=== PATIENT | male | born 1940 | race Caucasian/White ===

== ENCOUNTER 2023-07-20 15:19 | Inpatient (IN) | payer OTHER, SELFPAY ==
[2023-07-20] VITALS (20 sets, daily range): BP systolic 143–200; BP diastolic 69–96; PULSE 60–76; RESP 20–28; TEMP 36.8–37; O2SAT 87–93; BMI 39.2; BMI 38.1
--- NOTE | 2023-07-20 15:22 | ED_ITS ---
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 Was referred to the ER from the urgent care today. He does note that he has had a chronic cough with phlegm ongoing for the past several years and does not have a clearly satisfactory explanation for the chronic cough. His daughter says it is probably related to COPD, which he was recently diagnosed. In that setting he has developed a new illness this been going on for about a week now with an increased production of sputum. He has had a low-grade fever. Some myalgias and fatigue. No sore throat. No definite known exposures. Today his breathing was definitely worse than normal so he called his daughter, who insisted that he come to the doctor. He presented to the Urgent Care with a cough productive of clear sputum ongoing for about a week. He has been short of breath since this morning. O2 saturations were 86-89% with ambulation at the urgent care, up to 91% while resting in bed. Temp was 98.2?. COVID, influenza, RSV PCR was obtained in Urgent Care and results are pending. He is not having any chest pain. No nausea or vomiting. No fever today. No leg pain. No peripheral edema. Related Data Home Medications Medication Instructions Recorded Confirmed amlodipine 10 mg tablet 10 mg PO DAILY 07/20/23 07/20/23 atorvastatin 20 mg tablet 20 mg PO DAILY 07/20/23 07/20/23 azathioprine 50 mg tablet mg PO BID 07/20/23 07/20/23 azelastine 137 mcg-fluticasone 50 intranasal 07/20/23 07/20/23 mcg/spray nasal spray carboxymethylcellulose sodium 0.5 drp ophthalmic (eye) 07/20/23 07/20/23 % eye drops in a dropperette (Lubricating Plus) escitalopram oxalate 20 mg tablet 20 mg PO DAILY 07/20/23 07/20/23 esomeprazole magnesium 40 mg 40 mg PO QDAY 07/20/23 07/20/23 capsule,delayed release (Nexium) fluticasone fur. 100 mcg-umeclid 1 ea inhalation DAILY 07/20/23 07/20/23 62.5 mcg-vilant 25 mcg inhalat.powder (Trelegy Ellipta) losartan 100 mg tablet 100 mg PO DAILY 07/20/23 07/20/23 Allergies Allergy/AdvReac Type Severity Reaction Status Date / Time No Known Drug Allergies Allergy Verified 07/20/23 14:45 [facility] Social History Smoking Status: Former smoker Do you use any of these nicotine containing products: None Second hand tobacco smoke exposure: Yes How often do you have a drink containing alcohol: never How often do you have six or more drinks on one occasion: Never AUDIT-C Alcohol total score: 0 Non-prescribed substance use: denies use service: Yes Exam Narrative: Exam Narrative: Constitutional: Appears well-developed and well-nourished. Alert. Wearing hearing aids and is very polite and as long as he can here, he is very Conversant. Non toxic. HENT: Head: Atraumatic. Nose: Nose normal. Mouth/Throat: Oral mucosa is clear and moist. no trismus. Pharynx normal. Tonsils symmetric. No tonsillar enlargement, erythema, or exudate. Eyes: Conjunctivae normal. EOM normal. Pupils equal, round, and reactive to light. No scleral icterus. Neck: Normal range of motion. Neck supple. No tracheal deviation present. No JVD Cardiovascular: Normal rate, regular rhythm. No gallop. No friction rub. No murmur heard. Symmetric radial and DP artery pulses Pulmonary/Chest: Effort normal. O2 92% RA resting in bed. No stridor. No respiratory distress. Expiratory rales and rhonchi. Scares wheezes most notable in the bases. No tenderness. Abdominal: Soft. Bowel sounds normal. No distension. No mass. No tenderness. No rebound. No guarding. Musculoskeletal: RUE: Normal range of motion. No tenderness. No deformity LUE: Normal range of motion. No tenderness. No deformity RLE: Normal range of motion. No edema. No tenderness. No deformity LLE: Normal range of motion. No edema. No tenderness. No deformity Neurological: Alert and oriented to person, place, and time. Normal strength. CN II-VII intact. No sensory deficit. GCS eye subscore is 4. GCS verbal subscore is 5. GCS motor subscore is 6. Normal coordination Skin: Skin is warm and dry. No rash noted. No pallor. Normal capillary refill. Psychiatric: Normal mood. Normal affect. Const: Vital Signs, click to edit/add: Vital Signs - 24 hr 07/20/23 15:31 07/20/23 16:31 07/20/23 16:32 Temperature 98.3 F Pulse Rate 67 68 Pulse Rate [Pulse Oximeter] 64 Respiratory Rate 28 H Blood Pressure 143/69 H Blood Pressure [Ri ght Upper Arm] 200/96 H Pulse Oximetry 93 90 91 Oxygen Delivery Me thod Room Air 07/20/23 16:45 07/20/23 17:00 07/20/23 17:02 Temperature Pulse Rate 68 67 64 Pulse Rate [Pulse Oximeter] Respiratory Rate Blood Pressure 154/76 H Blood Pressure [Ri ght Upper Arm] Pulse Oximetry 89 88 89 Oxygen Delivery Me thod 07/20/23 17:15 07/20/23 17:30 07/20/23 17:32 Temperature Pulse Rate 62 76 65 Pulse Rate [Pulse Oximeter] Respiratory Rate Blood Pressure 172/84 H Blood Pressure [Ri ght Upper Arm] Pulse Oximetry 89 89 91 Oxygen Delivery Me thod 07/20/23 17:45 07/20/23 18:00 07/20/23 18:02 Temperature Pulse Rate 69 64 64 Pulse Rate [Pulse Oximeter] Respiratory Rate Blood Pressure 183/87 H Blood Pressure [Ri ght Upper Arm] Pulse Oximetry 90 88 89 Oxygen Delivery Me thod 07/20/23 18:15 Temperature Pulse Rate 70 Pulse Rate [Pulse Oximeter] Respiratory Rate Blood Pressure Blood Pressure [Ri ght Upper Arm] Pulse Oximetry 87 L Oxygen Delivery Me thod Course Vital Signs Vital signs: Initial Vital Signs Temperature 98.3 F 07/20/23 15:31 Temperature Source Temporal Artery Scan 07/20/23 15:31 Pulse Rate 64 07/20/23 15:31 Pulse Rhythm Regular 07/20/23 15:31 Respiratory Rate 28 H 07/20/23 15:31 Blood Pressure 200/96 H 07/20/23 15:31 Blood Pressure Mean 130 H 07/20/23 15:31 Blood Pressure Position Supine 07/20/23 15:31 Pulse Oximetry 93 07/20/23 15:31 Oxygen Delivery Method Room Air 07/20/23 15:31 Vital Signs Temperature 98.3 F 07/20/23 15:31 Pulse Rate 64 07/20/23 15:31 Respiratory Rate 28 H 07/20/23 15:31 Blood Pressure 200/96 H 07/20/23 15:31 Pulse Oximetry 93 07/20/23 15:31 Oxygen Delivery Method Room Air 07/20/23 15:31 Temperature 98.3 F 07/20/23 15:31 Pulse Rate 70 07/20/23 18:15 Respiratory Rate 28 H 07/20/23 15:31 Blood Pressure 183/87 H 07/20/23 18:02 Pulse Oximetry 87 L 07/20/23 18:15 Oxygen Delivery Method Room Air 07/20/23 15:31 Medications Administered Medications: Generic Name Dose Route Start Last Admin Trade Name Freq PRN Reason Stop Dose Admin Methylprednisolone Sodium Succinate 125 mg 07/20/23 15:45 07/20/23 16:17 Methylprednisolone Sod Succ 62.5 Mg/Ml (125) IVP 125 mg Q6H GORDON Administration Discontinued Medications Generic Name Dose Route Start Last Admin Trade Name Freq PRN Reason Stop Dose Admin Albuterol/Ipratropium 1 neb 07/20/23 15:36 07/20/23 16:17 Iprat-Albut 0.5-2.5 Mg/3 Ml Neb IH 07/20/23 15:37 1 neb ONCE ONE Administration Medical Decision Making MDM Narrative Medical decision making narrative: This patient is referred from Urgent Care to the ER for evaluation of 1 week worth of cough now with worsening shortness of breath and hypoxia with sats into them high to mid 80s with ambulation, maintaining in the low 90s while resting. Differential here includes viral URI, influenza, COVID, with her without superimposed COPD exacerbation. Also consider community-acquired pneumonia, cardiac causes of shortness of breath such as [place] or CHF, less likely would be PE. Workup here shows mild leukopenia with a white count of 3.4. Normal hemoglobin at 16.1. Platelet count normal. Metabolic profile in kidney function normal. Blood sugar normal. Troponin and BNP are both normal. Chest x-ray shows no evidence for pulmonary edema, pleural effusion, pneumonia, pneumothorax. Viral testing is positive for RSV but negative for influenza and COVID. He did have expiratory rales and scant wheezes on initial exam. Suspicion was for possible viral infection leading to COPD exacerbation. However treatment with nebulizers really made no improvement in his lung sounds, subjective shortness of breath, or oxygen sats. He maintains at the bare minimum normal resting in bed still desaturates when walking. He is not impro ving with bronchodilator therapy here in the ER. He will require admission for hospitalization and oxygen support. There is no signs at this point of serious bacterial infection such as OM, RPA, epiglottitis, [employer], strep pharyngitis, pneumonia, sinusitis, meningitis, bacteremia, serious bacterial infection. No leg swelling to suggest CHF. No unilateral swelling s to suggest DVT. No pleuritic chest pain or tachycardia or tachypnea to suggest PE. There are no gastrointestinal symptoms at this point and but he does have an elevated hemoglobin which could suggest some dehydration. otherwise laboratory workup is reassuring. He is accepted for admission by hospitalist, Dr. Blevins Lab Data Labs: Lab Results 07/20/23 Range/Units 15:59 WBC 3.45 L (4.50-11.00) K/uL RBC 4.35 (4.30-5.90) m/uL Hgb 16.1 (13.5-17.5) gm/dL Hct 47.1 (37.0-53.0) % MCV 108 H (80-100) fL MCH 37 H (26-34) pg MCHC 34 (32-36) gm/dL RDW Coeff of Rafael 15.2 (11.5-15.5) % Plt Count 153 (140-440) K/uL Neut % (Auto) 57.7 (42.0-72.0) % Lymph % (Auto) 27.5 (20-44) % [place] % (Auto) 11.0 (0.0-11.0) % Eos % (Auto) 3.5 (0.0-7.0) % Baso % (Auto) 0.3 (0.0-3.0) % Neut # (Auto) 2.00 (1.7-7.0) K/uL Lymph # (Auto) 0.90 (0.90-2.90) K/uL [place] # (Auto) 0.40 (0.00-0.90) K/UL Eos # (Auto) 0.10 (0.00-0.50) K/uL Baso # (Auto) 0.00 (0.00-0.30) K/uL Abs Immat Gran (auto) 0.00 (0.00-0.30) K/uL Imm/Tot Granulo (auto) 0.0 % Diff Slide Review Acceptable Review (Acceptable) Sodium 137 (135-149) mmol/L Potassium 3.8 (3.6-5.1) mmol/L Chloride 105 (96-114) mmol/L Carbon Dioxide 24 (20-32) mmol/L Anion Gap 8 (7-15) mEq/L BUN 14 (7-30) mg/dL Creatinine 0.9 (0.5-1.5) mg/dL Estimated Creat Clear 53.25 Estimated GFR 85 ml/min Glucose 113 (60-115) mg/dL Calcium 9.2 (8.4-10.6) mg/dL Troponin I < 0.01 L (0.01-0.04) ng/mL NT-Pro-B Natriuret Pep 84 pg/mL Imaging Data Chest x-ray: Attestation: I have reviewed the pertinent imaging results. Radiologist's impression: IMPRESSION: Lungs are clear. Normal chest radiographs. ECG Data Attestation: I personally reviewed and interpreted this ECG as follows: Interpretation: Normal sinus rhythm. Rate 60 MT 166 QRS axis right bundle-branch block pattern. No pathologic Q-waves. Normal QRS axis ST segment/T wave: Nonspecific T-wave flattening throughout. No ST segment elevation or depression QTc: 462 Discharge Plan Discharge Clinical Impression: Respiratory syncytial virus (RSV) infection, Hypoxia Prescriptions: No Action escitalopram oxalate 20 mg tablet 20 mg PO DAILY Trelegy Ellipta 100-62.5-25 mcg blister with device 1 ea inhalation DAILY atorvastatin 20 mg tablet 20 mg PO DAILY amlodipine 10 mg tablet 10 mg PO DAILY azathioprine 50 mg tablet PO BID losartan 100 mg tablet 100 mg PO DAILY carboxymethylcellulose sodium [Lubricating Plus] 0.5 % dropperette ophthalmic (eye) azelastine-fluticasone 137-50 mcg/spray spray,non-aerosol intranasal Patient Comments: [NO ORIGINAL SIG] esomeprazole magnesium [Nexium] 40 mg capsule,delayed release(DR/EC) 40 mg PO QDAY Follow Up/Referrals: Provider,Not a Local [Primary Care Provider] -
--- NOTE | 2023-07-20 15:36 | CRLHL7_ITS ---
For Patients: As a result of the Cures Act, medical imaging exams and procedure reports are released immediately into your electronic medical record. You may view this report before your referring provider. If you have questions, please contact your health care provider. INDICATION: Short of breath, cough COMPARISON: None. TECHNIQUE: PA and lateral 2 view chest radiograph. FINDINGS: The lungs are well expanded. No focal consolidations. No pulmonary edema. No pleural effusion. No pneumothorax. No pneumomediastinum. Normal cardiomediastinal silhouette. Bones: Left 4th through 7th rib fracture fixation plate and screw hardware. No acute appearing osseous abnormalities. IMPRESSION: Lungs are clear. Normal chest radiographs. Dictated by Donya Martins MD @ 07/20/2023 4:32:25 PM (Electronically Signed)
[2023-07-20 16:07] LABS: Basophils Percent Auto 0.3 % (0.0-3.0); Eosinophils Percent Auto 3.5 % (0.0-7.0); Hematocrit 47.1 % (37.0-53.0); Hemoglobin* 16.1 gm/dL (13.5-17.5); Lymphocytes Percent Auto 27.5 % (20-44); Mean Corpuscular HGB Conc 34 gm/dL (32-36); Mean Corpuscular Hemoglobin 37 pg (26-34); Mean Corpuscular Volume 108 fL (80-100); Neutrophils Percent Auto 57.7 % (42.0-72.0); Platelet Count* 153 K/uL (140-440); RDW Coefficient of Variation % 15.2 % (11.5-15.5); Red Blood Count 4.35 m/uL (4.30-5.90); White Blood Count* 3.45 K/uL (4.50-11.00)
[2023-07-20] MEDS: METHYLPREDNISOLONE SOD SUCC 62.5 MG/ML (125) 125 MG IVP ×2 (16:17→22:24)
[2023-07-20] MEDS: IPRAT-ALBUT 0.5-2.5 MG/3 ML NEB 1 NEB IH (16:17)
[2023-07-20 16:20] LABS: Chloride* 105 mmol/L (96-114); Potassium* 3.8 mmol/L (3.6-5.1); Sodium* 137 mmol/L (135-149)
[2023-07-20 16:22] LABS: Creatinine* 0.9 mg/dL (0.5-1.5); Est. Creatinine Clearance* 53.25; Estimated Glomerular Filt Rate 85 ml/min
[2023-07-20 16:23] LABS: Anion Gap 8 mEq/L (7-15); Blood Urea Nitrogen* 14 mg/dL (7-30); Calcium* 9.2 mg/dL (8.4-10.6); Carbon Dioxide* 24 mmol/L (20-32); Glucose* 113 mg/dL (60-115)
[2023-07-20 16:42] LABS: Slide Review Reflex Yes
[2023-07-20 16:45] LABS: NT Pro B Type NatriureticPept* 84 pg/mL; Troponin I* < 0.01 ng/mL (0.01-0.04)
[2023-07-20 16:55] LABS: Slide Review Acceptable Review (Acceptable)
--- NOTE | 2023-07-20 20:47 | PM.IMHP1 ---
Hospitalist- H&P: HPI History of Present Illness Date Seen: 07/20/23 Chief complaint: 88-91% O2, HBP, cough-sent by Narrative: Cornelius Telles is a 83 year old male with recently diagnosed COPD (non-oxygen dependent) who presented to the ED after having hypoxia in the UC earlier today. He went to the Urgent Care for one week history of cough (has had chronic cough for years, symptoms worse in the past week), subjective fevers, weakness. No chest pain, no hemoptysis. No LE edema, orthopnea, or PND. No GI symptoms. No known sick contacts. Found to be hypoxic in Urgent care and sent to ED. ER Course and Findings: - no acute findings on CXR, overall reassuring labs - O2 saturations 90-93% on RA while laying in bed, down to 85-86% with activity - given steroids and nebs with persistent hypoxia Given hypoxia, COPD history, and immunosuppression, patient admitted to the hospital. When I see Cornelius, he's feeling better, wearing supplemental oxygen. Review of Systems Status of ROS: Reports: 10 or more systems reviewed and unremarkable except as noted in History and below [facility] Medical History (Updated 07/20/23 @ 22:42 by Amanda Hobson MD) Hyperlipidemia ?E78.5 - Hyperlipidemia, unspecified (ICD-10) GERD (gastroesophageal reflux disease) ?K21.9 - Gastro-esophageal reflux disease without esophagitis (ICD-10) Essential hypertension ?I10 - Essential (primary) hypertension (ICD-10) COPD (chronic obstructive pulmonary disease) ?J44.9 - Chronic obstructive pulmonary disease, unspecified (ICD-10) Ulcerative colitis ?K51.90 - Ulcerative colitis, unspecified, without complications (ICD-10) Multiple rib fractures ?S22.49XA - Multiple fractures of ribs, unspecified side, initial encounter for closed fracture (ICD-10) Surgical History (Updated 07/20/23 @ 20:50 by Amanda Hobson MD) Hx of cholecystectomy ?Z90.49 - Acquired absence of other specified parts of digestive tract (ICD-10) Social History (Updated 07/20/23 @ 20:56 by Amanda Hobson MD) Narrative: 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 Primary home in [place], [place]. Currently staying with daughter Niya near [place] as she is helping care for Shayes Kayla (severe COPD). Quit smoking in the . Quit smoking 1999. Daughter Niya would be MDM if needed. Requests DNR/DNI status. What is your current living situation?: I presently have a place to live Problems where you live: no known problems Problems where you live details: NA In the past 12 months, utilities in danger of being shut off: no In past 12 months, lack of transportation kept you from medical appts, meetings, work, or getting things needed for daily living: no In the past 12 mos, have been you worried that your food would run out before you had money to buy more?: never true In the past 12 mos, the food you bought just didn't last and you didn't have money to buy more?: never true Highest level of school completed/degree received: 11th grade Smoking Status: Former smoker Do you use any of these nicotine containing products: None Nicotine containing products detail: over 40 years ago Second hand tobacco smoke exposure: Yes How often do you have a drink containing alcohol: never How often do you have six or more drinks on one occasion: Never AUDIT-C Alcohol total score: 0 Non-prescribed substance use: denies use Caffeine: Yes (rarely) How often does anyone, including family, friends and others, physically hurt you: never How often does anyone, including family, friends and others, insult or talk down to you: never How often does anyone, including family, friends and others, threaten you with harm: never How often does anyone, including family, friends and others, scream or curse at you: never service: Yes Meds Home Medications and Allergies Home Medications Medication Instructions Recorded Confirmed Type amlodipine 10 mg tablet 10 mg PO DAILY 07/20/23 07/20/23 History atorvastatin 20 mg tablet 20 mg PO DAILY 07/20/23 07/20/23 History azathioprine 50 mg tablet 50 mg PO BID 07/20/23 07/20/23 History azelastine 137 mcg-fluticasone 50 1 spray intranasal Q12H PRN 07/20/23 07/20/23 History mcg/spray nasal spray carboxymethylcellulose sodium 0.5 1 drp ophthalmic (eye) Q8H PRN 07/20/23 07/20/23 History % eye drops in a dropperette (Lubricating Plus) escitalopram oxalate 20 mg tablet 20 mg PO DAILY 07/20/23 07/20/23 History esomeprazole magnesium 40 mg 40 mg PO QDAY 07/20/23 07/20/23 History capsule,delayed release (Nexium) fluticasone fur. 100 mcg-umeclid 1 ea inhalation DAILY 07/20/23 07/20/23 History 62.5 mcg-vilant 25 mcg inhalat.powder (Trelegy Ellipta) losartan 100 mg tablet 100 mg PO DAILY 07/20/23 07/20/23 History Allergies Allergy/AdvReac Type Severity Reaction Status Date / Time No Known Drug Allergies Allergy Verified 07/20/23 14:45 Exam Narrative: Exam Narrative: GEN: Alert and oriented, sitting comfortably in bed and speaking in full sentences HEENT: EOMIs bilaterally, no scleral icterus CV: RRR, No concerning murmurs R: No significant wheezing during my exam, mild bibasilar rhonchi, air movement adequate Ab: protuberant, no ttp, no masses Ext: wwp, no concerning edema Skin: Scattered AKs on hands and head, no acute or concerning skin lesions Psych: Appropriate Const: Vital Signs, click to edit/add: Vital Signs - 24 hr 07/20/23 15:31 07/20/23 16:31 07/20/23 16:32 Temperature 98.3 F Pulse Rate 67 68 Pulse Rate [Pulse Oximeter] 64 Respiratory Rate 28 H Blood Pressure 143/69 H Blood Pressure [Le ft Arm] Blood Pressure [Ri ght Upper Arm] 200/96 H Pulse Oximetry 93 90 91 Oxygen Delivery Me thod Room Air Oxygen Flow Rate 07/20/23 16:45 07/20/23 17:00 07/20/23 17:02 Temperature Pulse Rate 68 67 64 Pulse Rate [Pulse Oximeter] Respiratory Rate Blood Pressure 154/76 H Blood Pressure [Le ft Arm] Blood Pressure [Ri ght Upper Arm] Pulse Oximetry 89 88 89 Oxygen Delivery Me thod Oxygen Flow Rate 07/20/23 17:15 07/20/23 17:30 07/20/23 17:32 Temperature Pulse Rate 62 76 65 Pulse Rate [Pulse Oximeter] Respiratory Rate Blood Pressure 172/84 H Blood Pressure [Le ft Arm] Blood Pressure [Ri ght Upper Arm] Pulse Oximetry 89 89 91 Oxygen Delivery Me thod Oxygen Flow Rate 07/20/23 17:45 07/20/23 18:00 07/20/23 18:02 Temperature Pulse Rate 69 64 64 Pulse Rate [Pulse Oximeter] Respiratory Rate Blood Pressure 183/87 H Blood Pressure [Le ft Arm] Blood Pressure [Ri ght Upper Arm] Pulse Oximetry 90 88 89 Oxygen Delivery Me thod Oxygen Flow Rate 07/20/23 18:15 07/20/23 18:30 07/20/23 18:33 Temperature Pulse Rate 70 71 74 Pulse Rate [Pulse Oximeter] Respiratory Rate Blood Pressure 157/81 H Blood Pressure [Le ft Arm] Blood Pressure [Ri ght Upper Arm] Pulse Oximetry 87 L 88 88 Oxygen Delivery Me thod Oxygen Flow Rate 07/20/23 18:34 07/20/23 18:45 07/20/23 18:50 Temperature 98.2 F Pulse Rate 69 60 Pulse Rate [Pulse Oximeter] 61 Respiratory Rate 26 H Blood Pressure Blood Pressure [Le ft Arm] 187/92 H Blood Pressure [Ri ght Upper Arm] Pulse Oximetry 88 89 91 Oxygen Delivery Me thod Nasal Cannula Oxygen Flow Rate 2 Hospitalist - H&P: Result Labs Labs: Short CBC 07/20/23 Range/Units 15:59 WBC 3.45 L (4.50-11.00) K/uL Hgb 16.1 (13.5-17.5) gm/dL Hct 47.1 (37.0-53.0) % Plt Count 153 (140-440) K/uL BMP 07/20/23 15:59 Sodium 137 Potassium 3.8 Chloride 105 Carbon Dioxide 24 BUN 14 Creatinine 0.9 Glucose 113 Calcium 9.2 Cardiac Enzymes 07/20/23 Range/Units 15:59 Troponin I < 0.01 L (0.01-0.04) ng/mL Assessment and Plan Assessment and plan (1) Hypoxia: Problem comment: - supplemental oxygen as needed, RT referral - 2/2 RSV, higher risk given underlying COPD Status: Acute (2) Respiratory syncytial virus (RSV) infection: Problem comment: - supportive cares: steroids given COPD history, nebs prn Status: Acute (3) Ulcerative colitis: Problem comment: - on Azathioprine Status: Acute (4) COPD (chronic obstructive pulmonary disease): Problem comment: - recently diagnosed at [place], on Trelegy Ellipta - does not wear supplemental oxygen as an outpatient Status: Acute (5) Essential hypertension: Problem comment: - continue home medications (Amlodipine, Losartan) Status: Acute Plan - per above - patient requests DNR/DNI status
[2023-07-20] MEDS: SODIUM CHLORIDE 0.9 % (FLUSH) 10 ML SYRINGE 5 ML IVF (22:24)
[2023-07-21] VITALS (7 sets, daily range): BP systolic 105–190; BP diastolic 58–89; PULSE 52–92; RESP 18–20; TEMP 36.3–36.9; O2SAT 90–93
[2023-07-21] MEDS: METHYLPREDNISOLONE SOD SUCC 62.5 MG/ML (125) 125 MG IVP (04:39)
--- NOTE | 2023-07-21 06:41 | PC.NURSE ---
Patient pleasant, alert and oriented. Ambulated with stand by assist. Reported feeling a little dizzy when ambulating to bathroom. Denied pain this shift. ?
[2023-07-21 06:42] LABS: Basophils Percent Auto 0.3 % (0.0-3.0); Hematocrit 45.8 % (37.0-53.0); Hemoglobin* 15.9 gm/dL (13.5-17.5); Immature Granulocytes Pct Auto 0.3 %; Lymphocytes Percent Auto 15.9 % (20-44); Mean Corpuscular HGB Conc 35 gm/dL (32-36); Mean Corpuscular Hemoglobin 37 pg (26-34); Mean Corpuscular Volume 108 fL (80-100); Monocytes Percent Auto 1.5 % (0.0-11.0); Platelet Count* 160 K/uL (140-440); RDW Coefficient of Variation % 15.2 % (11.5-15.5); Red Blood Count 4.26 m/uL (4.30-5.90); White Blood Count* 3.39 K/uL (4.50-11.00)
[2023-07-21 07:12] LABS: Slide Review Reflex No
[2023-07-21 07:23] LABS: Chloride* 107 mmol/L (96-114)
[2023-07-21 07:24] LABS: Sodium* 137 mmol/L (135-149)
[2023-07-21 07:26] LABS: Anion Gap 10 mEq/L (7-15); Carbon Dioxide* 20 mmol/L (20-32); Creatinine* 0.6 mg/dL (0.5-1.5); Est. Creatinine Clearance* 53.25; Estimated Glomerular Filt Rate 96 ml/min
[2023-07-21 07:27] LABS: Blood Urea Nitrogen* 14 mg/dL (7-30); Calcium* 9.2 mg/dL (8.4-10.6); Glucose* 176 mg/dL (60-115)
[2023-07-21] MEDS: OMEPRAZOLE 20 MG CAPSULE DR 40 MG PO (09:12)
[2023-07-21] MEDS: predniSONE 20 MG TABLET 40 MG PO (09:13)
[2023-07-21] MEDS: AMLODIPINE 10 MG TABLET PO (09:14)
[2023-07-21] MEDS: ATORVASTATIN 10 MG TABLET 20 MG PO (09:14)
[2023-07-21] MEDS: ESCITALOPRAM 10 MG TABLET 20 MG PO (09:15)
[2023-07-21] MEDS: LOSARTAN POTASSIUM 50 MG TABLET 100 MG PO (09:16)
[2023-07-21] MEDS: azaTHIOprine 50 MG TABLET PO ×2 (10:19→21:28)
[2023-07-21] MEDS: SODIUM CHLORIDE 0.9 % (FLUSH) 10 ML SYRINGE 5 ML IVF (10:20)
[2023-07-21] MEDS: Fluticasone-Umeclidin-Vilanter [Trelegy Ellipta] 100-62.5-25 mcg IH (13:11)
--- NOTE | 2023-07-21 14:11 | PM.IMPN1 ---
Progress Note: A&P Assessment and plan (1) Hypoxia: Problem details: - supplemental oxygen as needed, continue to wean as able, maintaining saturations >88% - RT referral - 2/2 RSV, higher risk given underlying COPD Status: Acute (2) Respiratory syncytial virus (RSV) infection: Problem details: - supportive cares: Oral steroids given COPD history, nebs prn Status: Acute (3) Ulcerative colitis: Problem details: - on Azathioprine Status: Acute (4) COPD (chronic obstructive pulmonary disease): Problem details: - recently diagnosed at [place], on Trerosemarygy Ellipta (brought in by ) - no chronic home oxygen use Status: Acute (5) Essential hypertension: Problem details: - continue home medications (Amlodipine, Losartan) Status: Acute Plan Continue to monitor, possible discharge tomorrow Time Spent With Patient Total time spent: Total time spent caring for the patient today was 45 minutes. This includes time spent for the visit reviewing the chart, time spent during the visit, time spent after the visit and documentation and planning in coordination of care. Subjective Date Seen: 07/21/23 Interval history: Patient reports feeling better this morning. Denies feeling short of breath. Denies chest pain or pressure. Denies headache or dizziness. Tolerating orals without nausea vomiting. Exam Narrative: Exam Narrative: PHYSICAL EXAM General: Pleasant, conversant, NAD HEENT: Normocephalic, atraumatic, sclera white, EOMI, oral mucosa moist Cardiovascular: RRR Pulmonary: Mildly diminished without rhonchi or wheezes. No dyspnea on N/C Abdominal: Soft, nondistended, NTTP Neurological: Alert, answering questions appropriately, cranial nerves intact, no focal findings Extremities: No gross joint deformity or swelling. AROMI. Neurovascularly intact Skin: Warm, dry. Const: Vital Signs, click to edit/add: Vital Signs - 24 hr 07/20/23 15:31 07/20/23 16:31 07/20/23 16:32 Temperature 98.3 F Pulse Rate 67 68 Pulse Rate [Bilate ral Dorsalis Pedis ] Pulse Rate [Pulse Oximeter] 64 Respiratory Rate 28 H Blood Pressure 143/69 H Blood Pressure [Le ft Arm] Blood Pressure [Ri ght Upper Arm] 200/96 H Pulse Oximetry 93 90 91 Oxygen Delivery Me thod Room Air Oxygen Flow Rate 07/20/23 16:45 07/20/23 17:00 07/20/23 17:02 Temperature Pulse Rate 68 67 64 Pulse Rate [Bilate ral Dorsalis Pedis ] Pulse Rate [Pulse Oximeter] Respiratory Rate Blood Pressure 154/76 H Blood Pressure [Le ft Arm] Blood Pressure [Ri ght Upper Arm] Pulse Oximetry 89 88 89 Oxygen Delivery Me thod Oxygen Flow Rate 07/20/23 17:15 07/20/23 17:30 07/20/23 17:32 Temperature Pulse Rate 62 76 65 Pulse Rate [Bilate ral Dorsalis Pedis ] Pulse Rate [Pulse Oximeter] Respiratory Rate Blood Pressure 172/84 H Blood Pressure [Le ft Arm] Blood Pressure [Ri ght Upper Arm] Pulse Oximetry 89 89 91 Oxygen Delivery Me thod Oxygen Flow Rate 07/20/23 17:45 07/20/23 18:00 07/20/23 18:02 Temperature Pulse Rate 69 64 64 Pulse Rate [Bilate ral Dorsalis Pedis ] Pulse Rate [Pulse Oximeter] Respiratory Rate Blood Pressure 183/87 H Blood Pressure [Le ft Arm] Blood Pressure [Ri ght Upper Arm] Pulse Oximetry 90 88 89 Oxygen Delivery Me thod Oxygen Flow Rate 07/20/23 18:15 07/20/23 18:30 07/20/23 18:33 Temperature Pulse Rate 70 71 74 Pulse Rate [Bilate ral Dorsalis Pedis ] Pulse Rate [Pulse Oximeter] Respiratory Rate Blood Pressure 157/81 H Blood Pressure [Le ft Arm] Blood Pressure [Ri ght Upper Arm] Pulse Oximetry 87 L 88 88 Oxygen Delivery Me thod Oxygen Flow Rate 07/20/23 18:34 07/20/23 18:45 07/20/23 18:50 Temperature 98.2 F Pulse Rate 69 60 Pulse Rate [Bilate ral Dorsalis Pedis ] Pulse Rate [Pulse Oximeter] 61 Respiratory Rate 26 H Blood Pressure Blood Pressure [Le ft Arm] 187/92 H Blood Pressure [Ri ght Upper Arm] Pulse Oximetry 88 89 91 Oxygen Delivery Me thod Nasal Cannula Oxygen Flow Rate 2 07/20/23 22:00 07/20/23 23:00 07/21/23 02:03 Temperature 98.6 F 98.1 F Pulse Rate Pulse Rate [Bilate ral Dorsalis Pedis ] Pulse Rate [Pulse Oximeter] 63 63 Respiratory Rate 20 20 Blood Pressure Blood Pressure [Le ft Arm] 175/86 H 190/89 H Blood Pressure [Ri t Upper Arm] Pulse Oximetry 92 92 93 Oxygen Delivery Me thod Nasal Cannula Nasal Cannula Room Air Nasal Can nula Oxygen Flow Rate 1 1 1 07/21/23 07:00 07/21/23 07:00 07/21/23 07:00 Temperature Pulse Rate Pulse Rate [Bilate ral Dorsalis Pedis ] 63 78 Pulse Rate [Pulse Oximeter] 63 Respiratory Rate 18 18 Blood Pressure Blood Pressure [Le ft Arm] 163/85 H Blood Pressure [Ri t Upper Arm] Pulse Oximetry 92 92 Oxygen Delivery Me thod Nasal Cannula Nasal Cannula Oxygen Flow Rate 1 1 Labs Labs: Laboratory Results - last 24 hr 07/20/23 07/21/23 15:59 06:09 WBC 3.45 L 3.39 L RBC 4.35 4.26 L Hgb 16.1 15.9 Hct 47.1 45.8 MCV 108 H 108 H MCH 37 H 37 H MCHC 34 35 RDW Coeff of Rafael 15.2 15.2 Plt Count 153 160 Neut % (Auto) 57.7 82.0 H Lymph % (Auto) 27.5 15.9 L Clarke % (Auto) 11.0 1.5 Eos % (Auto) 3.5 0.0 Baso % (Auto) 0.3 0.3 Neut # (Auto) 2.00 2.80 Lymph # (Auto) 0.90 0.50 L Clarke # (Auto) 0.40 0.10 Eos # (Auto) 0.10 0.00 Baso # (Auto) 0.00 0.00 Abs Immat Gran (auto) 0.00 0.00 Imm/Tot Granulo (auto) 0.0 0.3 Diff Slide Review Acceptable Review Sodium 137 137 Potassium 3.8 4.0 Chloride 105 107 Carbon Dioxide 24 20 Anion Gap 8 10 BUN 14 14 Creatinine 0.9 0.6 Estimated Creat Clear 53.25 53.25 Estimated GFR 85 96 Glucose 113 176 H Calcium 9.2 9.2 Troponin I < 0.01 L NT-Pro-B Natriuret Pep 84
[2023-07-21] MEDS: ENOXAPARIN 40 MG/0.4 ML INJ SUBCUT (21:28)
[2023-07-21] MEDS: MELATONIN 3 MG TABLET PO (22:02)
[2023-07-22 02:15] VITALS: BP 127/60; PULSE 51; RESP 20; TEMP 36.4; O2SAT 91
[2023-07-22 07:00] VITALS: RESP 18; O2SAT 94
[2023-07-22 07:45] VITALS: BP 149/73; PULSE 50; RESP 18; O2SAT 94
[2023-07-22 07:46] LABS: Hematocrit 44.4 % (37.0-53.0); Hemoglobin* 15.1 gm/dL (13.5-17.5); Mean Corpuscular HGB Conc 34 gm/dL (32-36); Mean Corpuscular Hemoglobin 37 pg (26-34); Mean Corpuscular Volume 110 fL (80-100); Platelet Count* 159 K/uL (140-440); Red Blood Count 4.04 m/uL (4.30-5.90); White Blood Count* 6.95 K/uL (4.50-11.00)
[2023-07-22 07:49] LABS: Slide Review Reflex No
--- NOTE | 2023-07-22 07:53 | PC.NURSE ---
Patient pleasant and alert. Disoriented at times. Ambulated with stand by assist. PRN Melatonin given at HS effective. Patient reports he slept well. O2 Sats dropped to 85% on 0.5 LPM when sleeping. O2 increased to 88-93% on 1 LPM. Reports felt fine tonight and denied any discomfort. No c/o of SOB.
--- NOTE | 2023-07-22 07:53 | PM.IMPN1 ---
Subjective Date Seen: 07/22/23 Exam Narrative: Exam Narrative: PHYSICAL EXAM General: Pleasant, conversant, NAD HEENT: Normocephalic, atraumatic, sclera white, EOMI, oral mucosa moist Cardiovascular: RRR Pulmonary: Mildly diminished without rhonchi or wheezes. No dyspnea on N/C Abdominal: Soft, nondistended, NTTP Neurological: Alert, answering questions appropriately, cranial nerves intact, no focal findings Extremities: No gross joint deformity or swelling. AROMI. Neurovascularly intact Skin: Warm, dry. Const: Vital Signs, click to edit/add: Vital Signs - 24 hr 07/21/23 11:00 07/21/23 15:00 07/21/23 15:00 Temperature 97.3 F L 97.5 F L Pulse Rate [Bilate ral Dorsalis Pedis ] 74 92 Pulse Rate [Pulse Oximeter] Respiratory Rate 18 18 18 Blood Pressure [Le ft Arm] 120/82 127/88 Pulse Oximetry 91 90 90 Oxygen Delivery Me thod Room Air Room Air Room Air Oxygen Flow Rate 07/21/23 15:00 07/21/23 19:00 07/21/23 22:04 Temperature 98.4 F 97.9 F Pulse Rate [Bilate ral Dorsalis Pedis ] Pulse Rate [Pulse Oximeter] 61 52 L Respiratory Rate 18 20 19 Blood Pressure [Le ft Arm] 105/77 121/58 L Pulse Oximetry 91 92 Oxygen Delivery Me thod Nasal Cannula Nasal Cannula Oxygen Flow Rate 0.5 0.5 07/21/23 23:00 07/22/23 02:15 07/22/23 07:45 Temperature 97.5 F L Pulse Rate [Bilate ral Dorsalis Pedis ] 50 L Pulse Rate [Pulse Oximeter] 51 L Respiratory Rate 19 20 18 Blood Pressure [Le ft Arm] 127/60 149/73 H Pulse Oximetry 92 91 94 Oxygen Delivery Me thod Nasal Cannula Nasal Cannula Nasal Cannula Oxygen Flow Rate 0.5 1 0.5 Labs Labs: Laboratory Results - last 24 hr 07/22/23 07:39 WBC 6.95 RBC 4.04 L Hgb 15.1 Hct 44.4 MCV 110 H MCH 37 H MCHC 34 Plt Count 159
[2023-07-22 08:03] LABS: Chloride* 109 mmol/L (96-114); Sodium* 139 mmol/L (135-149)
[2023-07-22 08:06] LABS: Anion Gap 9 mEq/L (7-15); Blood Urea Nitrogen* 23 mg/dL (7-30); Carbon Dioxide* 21 mmol/L (20-32); Creatinine* 0.8 mg/dL (0.5-1.5); Est. Creatinine Clearance* 53.25; Estimated Glomerular Filt Rate 88 ml/min; Glucose* 149 mg/dL (60-115)
[2023-07-22] MEDS: LOSARTAN POTASSIUM 50 MG TABLET 100 MG PO (09:21)
[2023-07-22] MEDS: Fluticasone-Umeclidin-Vilanter [Trelegy Ellipta] 100-62.5-25 mcg IH (09:21)
[2023-07-22] MEDS: azaTHIOprine 50 MG TABLET PO (09:21)
[2023-07-22] MEDS: AMLODIPINE 10 MG TABLET PO (09:24)
[2023-07-22] MEDS: OMEPRAZOLE 20 MG CAPSULE DR 40 MG PO (09:24)
[2023-07-22] MEDS: ATORVASTATIN 10 MG TABLET 20 MG PO (09:24)
[2023-07-22] MEDS: ESCITALOPRAM 10 MG TABLET 20 MG PO (09:24)
--- NOTE | 2023-07-22 10:31 | PC.NURSE ---
shift note: pre-ambulation in [place] sats=90% HR=71. Pt denies SOB. pt on RA. pt ambulated 125ft; sats 85% HR 101. pt stated he was SOB. Pt stool at rail for approx 3-5 mins then resumed ambulation to room (another 125ft) pt rested for approx 5 mins sitting on side of bed sats returned to 90% RA and HR 70. Pt denied SOB. Doris ELIZABETH notified and Resp Therapy notified of trial.
[2023-07-22 10:51] VITALS: O2SAT 85; O2SAT 90
[2023-07-22 10:58] LABS: Appearance Urine Clear (Clear); Bilirubin Urine Negative (Negative); Blood Urine Negative (Negative); Color Urine Dark yellow (Yellow); Glucose Urine Negative (Negative); Ketones Urine Negative (Negative); Leukocyte Esterase Urine Trace (Negative); Nitrite Urine Negative (Negative); Protein Urine 2+ (Negative); Specific Gravity Urine 1.025 (1.000-1.030); Urobilinogen Urine 0.2 (0.2-1.0)
[2023-07-22 11:00] VITALS: BP 131/64; PULSE 55; RESP 20; TEMP 36.9; O2SAT 92
[2023-07-22 11:11] LABS: Bacteria Urine Few; Mucus Urine Moderate; RBC Urine 0-2 (0-2); Squamous Epithelial Cell Urine Few (None-Few); WBC Urine 0-2 (0-5)
--- NOTE | 2023-07-22 11:56 | PM.DS1 ---
DS: Providers Provider Date Seen: 07/22/23 Date of admission: 07/20/23 19:28 Primary care physician: Not a Local Provider Admitting Clinician: Amanda Hobson MD Consults: 07/20/23 19:28 Consult to Respiratory Therapy [CONS] Routine Comment: Reason(s) for RT Consult:: Consult Attending Physician on discharge: ALLAN Valentin, [facility] Date of Discharge: 07/22/23 DS: Diagnosis Discharge Diagnosis (1) Hypoxia: Status: Acute Problem details: In setting of acute RSV infection and chronic COPD. Utilized supplemental oxygen during hospital course. Able to ambulate without oxygen on day of discharge, saturations dropping to 85%, rebounding to 90% within seconds while standing at rest. RT consulted. Does not qualify for home oxygen. (2) Respiratory syncytial virus (RSV) infection: Status: Acute Problem details: Managed with supportive cares. Was started on oral prednisone however during 2nd night, awoke with hallucinations which then resolved by morning. As not necessarily indicated for RSV, we did stop the oral steroid. Discussed that hallucinations may be in context of hospital setting. (3) Ulcerative colitis: Status: Acute Problem details: - on Azathioprine (4) COPD (chronic obstructive pulmonary disease): Status: Acute Problem details: Recently diagnosed at [place], on Trelegy Ellipta, not currently on chronic home oxygen. (5) Essential hypertension: Status: Acute Problem details: Continued on home medications (Amlodipine, Losartan) DS: Summary Hospital Course Hospital Course: [age] year old male past medical history significant for COPD, ulcerative colitis, hypertension was admitted to the medical floor for acute hypoxia in setting of RSV infection and COPD. Course of care and details as noted above. Hypoxia improved, likely back to baseline in setting of COPD. Prednisone was discontinued given acute short episode of hallucinations while in hospital setting. Discussed with patient may be able to use prednisone again in the outpatient setting, monitoring for change in mental status. Remainder of chronic medical comorbidities were monitored and managed with home medications. Status at Discharge Overall status at discharge: patient is back to baseline Time Spent with Patient Time attestation: Total time spent providing and/or coordinating discharge services: Time spent: Greater than 30 minutes Exam Narrative: Exam Narrative: PHYSICAL EXAM General: Pleasant, conversant, NAD Cardiovascular: RRR Pulmonary: No dyspnea Neurological: Alert, answering questions appropriately Skin: Warm, dry. Const: Vital Signs, click to edit/add: Vital Signs - 24 hr 07/21/23 15:00 07/21/23 15:00 07/21/23 15:00 Temperature 97.5 F L Pulse Rate [Bilate ral Dorsalis Pedis ] 92 Pulse Rate [Pulse Oximeter] Respiratory Rate 18 18 18 Blood Pressure [Le ft Arm] 127/88 Pulse Oximetry 90 90 Oxygen Delivery Me thod Room Air Room Air Oxygen Flow Rate 07/21/23 19:00 07/21/23 22:04 07/21/23 23:00 Temperature 98.4 F 97.9 F Pulse Rate [Bilate ral Dorsalis Pedis ] Pulse Rate [Pulse Oximeter] 61 52 L Respiratory Rate 20 19 19 Blood Pressure [Le ft Arm] 105/77 121/58 L Pulse Oximetry 91 92 92 Oxygen Delivery Me thod Nasal Cannula Nasal Cannula Nasal Cannula Oxygen Flow Rate 0.5 0.5 0.5 07/22/23 02:15 07/22/23 07:00 07/22/23 07:45 Temperature 97.5 F L Pulse Rate [Bilate ral Dorsalis Pedis ] 50 L Pulse Rate [Pulse Oximeter] 51 L Respiratory Rate 20 18 18 Blood Pressure [Le ft Arm] 127/60 149/73 H Pulse Oximetry 91 94 94 Oxygen Delivery Me thod Nasal Cannula Nasal Cannula Nasal Cannula Oxygen Flow Rate 1 0.5 0.5 07/22/23 11:00 Temperature 98.5 F Pulse Rate [Bilate ral Dorsalis Pedis ] 55 L Pulse Rate [Pulse Oximeter] Respiratory Rate 20 Blood Pressure [Le ft Arm] 131/64 Pulse Oximetry 92 Oxygen Delivery Me thod Room Air Oxygen Flow Rate DS: Data Data Completed and Pending Labs on day of discharge: Labs from last 24 hours 07/22/23 07/22/23 Unknown 07:39 WBC 6.95 RBC 4.04 L Hgb 15.1 Hct 44.4 MCV 110 H MCH 37 H MCHC 34 Plt Count 159 Sodium 139 Potassium 4.0 Chloride 109 Carbon Dioxide 21 Anion Gap 9 BUN 23 Creatinine 0.8 Estimated Creat Clear 53.25 Estimated GFR 88 Glucose 149 H Calcium 9.0 Urine Color Dark yellow Urine Appearance Clear Urine pH 6.0 Ur Specific [place] 1.025 Urine Protein 2+ A Urine Glucose (UA) Negative Urine Ketones Negative Urine Blood Negative Urine Nitrite Negative Urine Bilirubin Negative Urine Urobilinogen 0.2 Ur Leukocyte Esterase Trace A Urine RBC 0-2 Urine WBC 0-2 Ur Squamous Epith Cells Few Urine Bacteria Few A Urine Mucus Moderate A Preliminary micro results at discharge 07/22/23 Unknown Urine Culture - Preliminary Urine,Clean Catch Culture in Progress Discharge Plan Discharge Disposition: Home, Self-Care Date of Admission: 07/20/23 19:28 Attending Provider on Discharge: Brenda George Primary Care Provider: Provider,Not a Local Condition: Improved Anticipated Discharge Date/Time: 07/22/23 11:52 Discharge Medications: Continued escitalopram oxalate 20 mg tablet 20 mg PO DAILY Trelegy Ellipta 100-62.5-25 mcg blister with device 1 ea inhalation DAILY atorvastatin 20 mg tablet 20 mg PO DAILY amlodipine 10 mg tablet 10 mg PO DAILY azathioprine 50 mg tablet 50 mg PO BID losartan 100 mg tablet 100 mg PO DAILY carboxymethylcellulose sodium [Lubricating Plus] 0.5 % dropperette 1 drp ophthalmic (eye) Q8H PRN azelastine-fluticasone 137-50 mcg/spray spray,non-aerosol 1 spray intranasal Q12H PRN Patient Comments: [NO ORIGINAL SIG] esomeprazole magnesium [Nexium] 40 mg capsule,delayed release(DR/EC) 40 mg PO QDAY Discharge Orders: Discharge Order (Routine); Ordered 07/22/23 Ordered By: Brenda George Patient Education: RSV (Respiratory Syncytial Virus) (GEN) Additional Instructions: Continue symptomatic cares, prednisone has been discontinued due to hallucinations while in the hospital. This may be specific to the setting. You may be able to trial oral steroids again in your home setting if necessary with a COPD flare, monitoring for any mental status changes. Activity Level: Activity as Tolerated Discharge Diet: Regular Follow Up Appointments: Provider,Not a Local [Primary Care Provider] - 08/01/23 (Post hospital follow-up, RSV, COPD, hypoxia) Forms: [employer] Info Instructions
--- NOTE | 2023-07-22 14:20 | PC.NURSE ---
shift note: vss stable. LS with rhonchi RLL and mid lobe. pt denies sob. No IV. Reviewed dc instructions and copies sent with pt. Belongings sent with pt at dc with home med.
== END 2023-07-22 13:00 | disposition home or self-care (01) | DRG 191 ==
LOC: ED 15:51 → MEDSURG 18:54
PROVIDERS: Physician Assistant; Admitting Provider Family Medicine; Emergency Provider Emergency Medicine; Visit Provider Family Medicine
DX: J44.0 Chronic obstructive pulmonary disease with (acute) lower respiratory infection (principal); K51.90 Ulcerative colitis, unspecified, without complications; R44.3 Hallucinations, unspecified; J22 Unspecified acute lower respiratory infection; B97.4 Respiratory syncytial virus as the cause of diseases classified elsewhere; R09.02 Hypoxemia; Z87.891 Personal history of nicotine dependence; I10 Essential (primary) hypertension; E78.5 Hyperlipidemia, unspecified; I45.10 Unspecified right bundle-branch block
CPT/HCPCS: 36415; 71046; 80048; 81001; 82947; 83880; 84484; 85025; 85027; 87086; 93005; 94640; 94664; 99283; 99285; A9270; J1650; J2930; J7500; J7512

== ENCOUNTER 2024-04-03 08:00 | Outpatient (CLI) | payer MEDICARE, SELFPAY ==
--- OUTSIDE RECORDS SUMMARY | 2024-04-04 11:24 | XMS_ITS | Clinical Summary ---
Author Organization [facility] Address [address] [place] [address] Care Team Providers Care Emt Basic Name Role Phone Chato HODGSON M.D., Rodri Laws Primary Care Provider [phone] Source Comments Patient records contain information from all sites at [facility]. For routine questions regarding patient records, call [phone] during business hours, M-F 8:00 AM - 5:00 PM Central Time. Record requests for emergency care only can be directed to [phone] at any time.[facility] Allergies Active Allergy Reactions Criticality Noted Date Comments Hydrochlorothiazide Other (see comments) Low 2020 Orthostatic hypotension, light headedness Metformin GI intolerance 12/10/2023 diarrhea Medications MULTIVITAMIN WITH MINERALS ORAL Take 1 tablet by mouth daily. 4 Active vit C/vit E/lutein/min/ome ga-3 (OCUVITE ORAL) Take 2 capsules by mouth 2 (two) times a day. 9 Active fluocinonide (LIDEX) 0.05 % external solution Apply up to 15 drops to the itchy scalp daily for up to 1 week as needed 60 mL 3 1 Active metFORMIN XR (GLUCOPHAGE-XR) 500 mg 24 hr tabletIndication s:Diabetes Mellitus Type 2 Without Complication (HCC) Take 1 tablet (500 mg total) by mouth daily with breakfast. 30 tablet 11 1 Active Additional Information Patient not taking.Reported on 12/10/2023 azelastine-fluti casone (DYMISTA) 137-50 mcg/spray nasal sprayIndications :Chronic Cough,Rhinitis Administer 1 spray into each nostril 2 (two) times a day. 23 g 3 Active Additional Information Patient not taking.Reported on 12/10/2023 carboxymethylcel lulose (REFRESH PLUS) 0.5 % ophthalmic solution Use in both eyes until your appointment for lens measurements. 30 each 1 3 Active Additional Information Patient not taking.Reported on 12/10/2023 escitalopram (LEXAPRO) 20 mg tabletIndication s:Irritability TAKE 1 TABLET (20 MG TOTAL) BY MOUTH AT BEDTIME. 90 tablet 3 3 Active esomeprazole (NexIUM) [address] capsule Take 1 capsule (40 mg total) by mouth every morning before breakfast. 90 capsule 3 3 Active fluticasone-umec lidinium-vilante rol (Trelegy Ellipta) 100-62.5-25 mcg/actuation inhaler Inhale 1 puff once daily. 1 each 4 Active albuterol (Ventolin HFA) 90 mcg/actuation inhaler Inhale 2 puffs every 4 (four) hours as needed for wheezing or shortness of breath. 18 g 4 Active Additional Information Patient not taking.Reported on 12/10/2023 amLODIPine (NORVASC) 10 mg tabletIndication s:Hypertension And Chronic Kidney Disease Stage 2 Take 1 tablet (10 mg total) by mouth daily. 90 tablet 3 4 Active atorvastatin (LIPITOR) 20 mg tabletIndication s:Dyslipidemia Take 1 tablet (20 mg total) by mouth daily. 90 tablet 3 4 Active losartan (COZAAR) 100 mg tabletIndication s:Hypertension And Chronic Kidney Disease Stage 2 Take 1 tablet (100 mg total) by mouth daily. 90 tablet 3 4 Active azaTHIOprine (IMURAN) 50 mg tabletIndication s:Colitis Ulcerative (HCC) Take 4 tablets (200 mg total) by mouth daily. 360 tablet 3 4 Active Active Problems Problem Noted Date Diagnosed Date Bronchiolitis 06/07/2023 Gastroesophageal Reflux Disease Without Esophagi tis 06/07/2023 Chronic Obstructive Pulmonary Disease 06/07/2023 Intraocular Lens Implant Status Post 05/14/2023 Assessment & Plan (05/14/2023 4:17 PM [employer]): Monitor. Morbid Obesity Body Mass Ind ex >= 35 with Comorbid Condition 03/30/2021 Assessment & Plan (03/31/2021 7:35 AM CDT): ?? Since meeting with tobacco prevention health educator patient has made a significant effort at lifestyle changes. These changes have resulted in significant weight loss. ?? 114 kg --> 104 kg in 3 months. ?? I commended patient on his efforts and encouraged him to continue. Diabetes Mellitus Type 2 With Diabetic Nephropat hy 11/04/2020 Overview (11/08/2021): Metformin XR 500 mg daily JOSHUA/ARB - losartan Statin - atorvastatin Dilated eye exam - seeing ophthalmology monthly for injections due to exudative macular degeneration. No know diabetic retinopathy. Assessment & Plan (03/31/2021 7:32 AM CDT): Lab Results Component Value Date HGBA1C 5.2 03/21/2021 ALBCREARATIO 13 03/21/2021 ? ? well controlled ? ? Recent hypoglycemic episode? NO ? ? Dilated eye exam -- 10/08/20 -- Following with ophtho regularly for macular degeneration ? ? Foot exam -- ? ? Current regimen: o Metformin XR 500 mg daily o ACEi/ARB -- low certain o Statin -- atorvastatin o Aspirin -- no ? ? Plan: o Dramatic improvement in A1c. This is at least partially due to patient losing weight and modifying his diet after meeting with the tobacco prevention health educator. o Patient requesting trial off metformin as it has been causing him to have diarrhea. I think this is reasonable. We will hold metformin and recheck A1c in 3 months. Assessment & Plan (11/04/2020 10:52 AM CDT): Lab Results Component Value Date HGBA1C 7.0 (H) 11/03/2020 ?? This is a new diagnosis and we discussed this at length today. ?? Initiate metformin 500mg daily ?? Recheck A1c in 3 months ?? Refer to tobacco prevention health educator ?? ARB - Losartan 100mg daily ?? Statin - Atorvastatin 20mg daily Melena 05/05/2020 Overview (05/05/2020): Added automatically from request for surgery [id number] Irritability 01/06/2020 Overview (10/24/2022): Lexapro 20 mg at bedtime Assessment & Plan (01/06/2020 1:11 PM CDT): ?? Trial of lexapro 10mg QHS Loss Hearing Bilateral 01/06/2020 Overview (10/24/2022): Wears hearing aids Assessment & Plan (10/21/2020 11:01 AM CDT): ?? Bilateral hearing aids Assessment & Plan (01/06/2020 11:04 AM CDT): ?? Wears hearing aids bilaterally Chronic Cough 01/06/2020 Assessment & Plan (10/21/2020 11:08 AM CDT): ?? Continues to have chronic cough occasionally productive of large amount of white sputum ?? No improvement with allergy treatment or GERD treatment. ?? Patient is former smoker with 25+ pack year history. I thinks a chest CT is warranted both for evaluation of the chronic cough as well as lung CA screening. CT ordered today. ?? If there is nothing remarkable on CT I think next step for evaluating cough would be ENT referral. ?? Since neither omeprazole or Singulair have helped patient at all we are going to discontinue both. Assessment & Plan (01/06/2020 1:10 PM CDT): ?? Appears allergic in nature ?? 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 Visual acuity and fluid remain stable on current regimen. Continue Avastin every 7-8 weeks Likely will not extend past 8-9 weeks in future but for now, continue at 8 weeks. 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 Visual acuity and fluid remain stable on current regimen. Continue Avastin every 7-8 weeks. Discussed slow/cautious treat and extend after cataract extraction. Likely will not extend past 8-9 weeks in future but for now, continue at 8 weeks. 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 Visual acuity and fluid remain stable on current regimen. Continue Avastin every 7-8 weeks. Discussed slow/cautious treat and extend after cataract extraction. Likely will not extend past 8-9 weeks. If intraretinal fluid recurs with extension, will plan to switch to Eylea or faricimab to ensure long-term stability ? ? Continue AREDS2 supplementation ? ? Amsler use discussed ? ? 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 Visual acuity and fluid remain stable on current regimen. Continue Avastin every 7-8 weeks. Discussed slow/cautious treat and extend. Likely will not extend past 8 weeks. If intraretinal fluid recurs with extension, will plan to switch to Eylea or faricimab to ensure long-term stability ? ? Continue AREDS2 supplementation ? ? Amsler use discussed ? ? 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 Visual acuity and fluid remain stable on current regimen. Continue Avastin every 4-5 weeks. Discussed slow/cautious treat and extend. Likely will not extend past 8 weeks. If intraretinal fluid recurs with extension, will plan to switch to Eylea to ensure long-term stability ? ? Continue AREDS2 supplementation ? ? Amsler use discussed ? ? Counseled patient on: UV protection, green leafy vegetable diet, regular exercise (healthy lifestyle), and smoking avoidance Dyslipidemia 10/10/2017 Overview (11/08/2021): Atorvastatin 20 mg daily Assessment & Plan (03/31/2021 7:33 AM CDT): Lab Results Component Value Date CHOL 119 11/03/2020 TRIG 127 11/03/2020 HDL 43 11/03/2020 LDLCALC 51 11/03/2020 ? ? well controlled ? ? Current Regimen: o Atorvastatin 20 mg ? ? Plan: o Continue current treatment plan Assessment & Plan (10/21/2020 11:03 AM CDT): ?? Check lipid panel and ALT for surveillance ?? Atorvastatin 20mg Assessment & Plan (01/06/2020 1:10 PM CDT): ?? Controlled ?? Continue statin therapy Assessment & Plan (07/07/2019 5:11 PM [employer]): ?? Controlled ?? Continue statin therapy ?? Continue to maintain low fat diet and keep up the good work on weight loss. 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 Controlled ?? Azathioprine 200mg daily ?? Drug monitoring labs ordered. Assessment & Plan (01/06/2020 1:09 PM CDT): ?? Currently asymptomatic ?? Continue azathioprine 200 mg daily Assessment & Plan (07/07/2019 5:10 PM [employer]): ?? Currently asymptomatic ?? Continue azathioprine 200 mg daily Hypertensive Chronic Kidney Disease With Stage 1 Through Stage 4 Chronic Kidney Disease, Or Unspecified Chronic Kidney Disease 11/15/2011 Overview (10/24/2022): Microalbuminuria Amlodipine 10 mg daily Losartan 100 mg daily Assessment & Plan (03/31/2021 7:36 AM CDT): BP 127/75 (BP Location: Left arm, Patient Position: Sitting, Cuff Size: Regular) Lab Results Component Value Date CREATININE 1.04 11/03/2020 EGFRNONBLKAA 68 11/03/2020 EGFRBLKAA 79 11/03/2020 ? ? Blood pressure remains well controlled after stopping HCTZ. ? ? Renal function normal ? ? Current regimen: o Losartan 100 mg daily o HCTZ recently discontinued due to adverse effect of intense light headedness. ? ? Plan o Continue current regimen Assessment & Plan (01/05/2021 6:06 PM CDT): ?? Blood pressure controlled but having increasing orthostatic hypotension. ?? Will trial lower dose of HCTZ 25 mg --> 12.5 mg ?? Continue other medication as before ?? Amlodipine 10 mg ?? Losartan 100 mg ?? Patient to continue home blood pressure monitoring and contact clinic in 2 weeks via portal to let me know how he is doing with the medication change. ?? Contact the clinic sooner if there are any new or worsening symptoms. Assessment & Plan (11/04/2020 10:47 AM CDT): ?? BP mildly elevated, we will work on tighter blood pressure control in light of new diabetes diagnosis. ?? Increase amlodipine 5mg --> 10mg ?? HCTZ 25mg daily ?? Losartan 100mg daily ?? Recheck blood pressure at follow up visit in 3 months. Assessment & Plan (10/21/2020 11:03 AM CDT): ?? Blood pressure controlled ?? Check lytes and renal function for surveillance ?? Amlodipine 5mg daily ?? HCTZ 25mg daily ?? Losartan 100mg daily Assessment & Plan (01/06/2020 11:05 AM CDT): ?? BP significantly improved from previous visit ?? Continue current medications ?? Encouraged patient to continue working on increased activity and lower sodium diet. Assessment & Plan (07/07/2019 5:13 PM [employer]): ?? Uncontrolled due to non-adherence ?? Discussed medication regimen with patient, particularly the need to take the losartan that was prescribed. He expressed understanding and agreement. ?? Metabolic panel from last week showing very early stage 2 kidney disease and normal electrolytes. ?? Will continue to monitor renal function. Plan for next BMP in 6-12 months. Resolved Problems Problem Noted Date Diagnosed Date Resolved Date Combined Forms Age Related Cataract Bilateral 01/16/20 23 05/14/2023 Cataract Senile Nuclear Sclerosis Bilateral 05/17/2017 05/14/2023 Assessment & Plan (08/28/2022 12:44 PM CDT): Likely contributing to subjective blur. Follows with Dr. Nogueira--will send him for cataract extraction eval Assessment & Plan (12/11/2021 10:51 AM CDT): Likely contributing to subjective blur. Follows with Dr. Nogueira Assessment & Plan (05/10/2021 12:29 PM [employer]): Likely contributing to subjective blur. Follows with Dr. Nogueira--will send message. Cataract Senile Cortical Bilateral 05/17/2017 05/14/2023 Encounters Date Type Department Care Team Description 03/05/2024 Clinical Communication Department of Ophthalmology in [place], [place] [address] [place] [address] Peyton Timmons M.D., Ph.D. from Last 3 Months Immunizations Name Administration Dates Next Due HZV (ZOSTAVAX) 03/22/2012,08/07/2006 Influenza high dose QV(65 ye ars or older) (PF) 04/24/2022,03/30/2021 Influenza, Quadrivalent, Adj uvanted, Preservative Free 02/19/2020 Influenza, Unspecified 04/21/2014 PCV13 07/20/2014 PPSV23 03/22/2012,03/07/2011 RZV (SHINGRIX) 11/25/2019,07/07/2019 SARS-COV-2 (COVID-19) - PFIZ ER (Discontinued)(12 years or older) 03/01/2021,08/30/2020,08/04/2020 SARS-COV-2 (COVID-19) - PFIZ ER BIVALENT TS(Discontinued)(12 YEARS OR OLDER) 04/24/2022 SARS-COV-2 (COVID-19) - PFIZ ER TS(Discontinued)(12 years or older) 11/08/2021 Td (Adult), adsorbed 09/23/1997,06/11/1979 Tdap 12/09/2013 influenza trivalent high dos e (HD)(PF) 05/12/2019,03/10/2018,04/09/2017,2015,03/31/2015 influenza trivalent vaccine (6 months and older)(PF) 02/19/2020,05/12/2013,03/21/2012 Family History Medical History Relation Name Comments Stroke Father Cancer Mother Relation Name Status Comments Father Mother Social History Tobacco Use Types Packs/Day Years Used Date Smoking Tobacco: Former Cigarettes 2 25 1 963 - 1987 Smokeless Tobacco: Never Tobacco Cessation:Counseling Given: Not Answered Alcohol Use Standard Drinks/Week Comments No 0 (1 standard drink = 0.6 oz pur e alcohol) Humiliation, Afraid, Rape, and Kick questionnair e Answer Date Recorded Within the last year, have y ou been afraid of your partner or ex-partner? No 04/24/2022 Within the last year, have y ou been humiliated or emotionally abused in other ways by your partner or ex-partner? No Within the last year, have y ou been kicked, hit, slapped, or otherwise physically hurt by your partner or ex-partner? No 04/24/2022 Within the last year, have y ou been raped or forced to have any kind of sexual activity by your partner or ex-partner? No 04/24/2022 Social Connection and Isolation Panel [NHANES] A nswer Date Recorded In a typical week, how many times do you talk on the phone with family, friends, or neighbors? Three times a week 04/24/2022 How often do you get togethe r with friends or relatives? Twice a week 04/24/2022 How often do you attend chur ch or baptist services? Never 04/24/2022 Do you belong to any clubs o r organizations such as spiritism groups, unions, fraternal or athletic groups, or school groups? No 04/24/2022 How often do you attend meet ings of the clubs or organizations you belong to? Never 04/24/2022 Are you , , di vorced, , never , or living with a partner? 04/24/2022 AUDIT-C Answer Date Recorded Q1: How often do you have a drink containing alc ohol? Never 04/24/2022 Average Number of Drinks Not on file 022 Frequency of Binge Drinking Not on file 04/11 Overall Financial Resource Strain (CARDIA) Answe r Date Recorded How hard is it for you to pa y for the very basics like food, housing, medical care, and heating? Not hard at all 04/24/2022 PHQ-2 Answer Date Recorded PHQ-2 Score 0 10/24/2022 [facility] - Occupational Stress Questionnaire Answer Date Recorded Do you feel stress - tense, restless, nervous, or anxious, or unable to sleep at night because your mind is troubled all the time - these days? Not at all 04/24/2022 Exercise Vital Sign Answer Date Recorde d On average, how many days pe r week do you engage in moderate to strenuous exercise (like a brisk walk)? 0 days 04/24/2022 On average, how many minutes do you engage in exercise at this level? 0 min 04/24/2022 Hunger Vital Sign Answer Date Recorded Within the past 12 months, y ou worried that your food would run out before you got the money to buy more. Never true 04/24/20 Within the past 12 months, t he food you bought just didn't last and you didn't have money to get more. Never true 04/24/2022 PRAPARE - Transportation Answer Date Re corded In the past 12 months, has l ack of transportation kept you from medical appointments or from getting medications? No 04/11 In the past 12 months, has l ack of transportation kept you from meetings, work, or from getting things needed for daily living? No 04/24/2022 Housing Stability Vital Sign Answer Jacobo e Recorded In the last 12 months, was t here a time when you were not able to pay the mortgage or rent on time? No 04/24/2022 In the last 12 months, how many places have you lived? 1 04/24/2022 In the last 12 months, was t here a time when you did not have a steady place to sleep or slept in a retirement (including now)? No 04/24/2022 Depression Answer Date Recor ded PHQ-9 Total Score (max 27) 0 04/24 Nutrition Answer Date Recorded On average, how many serving s of fruits and vegetables do you eat per day (serving size is equal to 1 cup or approximately the size of a tennis ball)? 2-3 04/24/2022 Dental Answer Date Recorded Dental: Regular Dentist Yes 04/24/20 Employment Answer Date Recorded Employment status Retired 04/24/2022 Education Answer Date Recorded What is the highest level of school you have completed or the highest degree you have received? 12th grade 04/24/2022 Sex and Gender Information Value Date Recorded Sex Assigned at Male 12/03/2017 2:33 PM CDT Legal Sex Male 4:59 PM [employer] Gender Identity Male 12/03/2017 2:33 PM CDT Sexual Orientation Straight 12/03/2017 2: 33 PM CDT Last Filed Vital Signs Vital Sign Reading Time Taken Comments Blood Pressure 138/65 09/06/2023 2:34 PM CDT Pulse 66 09/06/2023 2:34 PM CDT Temperature 36.4 ??C (97.5 ??F) 09/06/2023 2:34 PM CD T Respiratory Rate 16 09/06/2023 2:34 PM CDT Oxygen Saturation 96% 09/06/2023 2:34 PM CDT Inhaled Oxygen Concentration - - Weight 109 kg (239 lb 13.8 oz) 09/06/2023 2:34 P M CDT Height 171.5 cm (5' 7.52) 06/07/2023 10:[address] Body Mass Index 36.99 06/07/2023 10:31 AM [employer] Plan of Treatment Health Maintenance Due Date Last Done Comments Hepatitis B Vaccines (1 of 3 - Risk 3-dose series) 2001 Visit: Medicare Annual Wellness 04/25/2023 04/24/2022 Depression Screening (Annual PHQ-2) 06/11/2023 Fall Risk Screen (Annual) 06/11/2023 Creatinine Level (Kidney Function Test) 10/24/2023 10/23/2022, 11/08/2021, 11/03/2020, Additional history exists Potassium Level 10/24/2023 10/23/2022, 10/11, 11/03/2020, Additional history exists Sodium Level 10/24/2023 10/23/2022, 10/11, 11/03/2020, Additional history exists Urine Albumin 10/24/2023 10/23/2022, 04/11, 03/21/2021, Additional history exists Hemoglobin A1C 10/26/2023 04/27/2023, 10/09, 04/21/2022, Additional history exists DTaP,Tdap,and Td Vaccines (2 - Td or Tdap) 12/10/2023 12/09/2013, 09/23/1997, 06/11/1979 COVID-19 Vaccine ( season) 2024 05/17/2023, 04/24/2022, 11/08/2021, Additional history exists Influenza Vaccine (#1) 2024 , 04/24/2022, 03/30/2021, Additional history exists Diabetic Office Visit with Foot Exam 04/30/2024 04/30/2023, 04/30/2023, 11/08/2021, Additional history exists Visit: Chronic Disease, age 18+ 04/30/2024 04/30/2023, 04/30/2023 Office Visit for Blood Pressure Check / Re-check 09/05/2024 09/06/2023 Dilated Eye Exam 12/09/2024 12/10/2023, , 02/27/2020, Additional history exists Pneumococcal vaccine (65+ years) Completed 07/20/2014, 03/22/2012, 03/07/2011 Zoster Vaccines Completed 11/25/2019, 06/12, 03/22/2012, Additional history exists Colonoscopy Discontinued 05/26/2020, 04/22/2015 Colorectal Cancer Surveillance Discontinued Lung Cancer Screening Discontinued 10/27/2020 RSV vaccine - (32-36 weeks) or 60+ years Completed 05/31/2023 CT Colonography Discontinued Cologuard Discontinued HPV Vaccines Aged Out No longer eligi ble based on patient's age to complete this topic Medical Devices Implanted Type 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 8 Holes - Patten [id number] Implanted:Qty: 4 on 12/17/2013 Hardware e.g. pins/screws/ rods Left: Rib Depuy Synthes Description:Device Manufactu rer - Synthes. Device Status Text - [id number]. Screw-Matrixrib S-Tap Lock 2.9 X 14mm - Patten [id number] Implanted:Qty: 23 on 12/17/2013 Hardware e.g. pins/screws/ rods Left: Rib Depuy Synthes Description:Device Manufactu rer - Synthes. Device Status Text - [id number]. Lens Clr Mnl Cna0t0 +19.0d - [id number] - [id number] Implanted:Qty: 1 on 02/26/2023 by Amol Nogueira M.D., Ph.D. at [facility] Ocular Lens Right: Eye [employer] 09/10/2025 CNA0T0.19 0 / [id number] / Lens Clr Mnl Cna0t0 +19.5d - [id number] - [id number] Implanted:Qty: 1 on 03/05/2023 by Amol Nogueira M.D., Ph.D. at [facility] Ocular Lens Left: Eye [employer] 06/20/2025 CNA0T0.19 5 / [id number] / Procedures Procedure Name Priority Date/Time Associated Diagnosis Comments OPHTHALMOLOGY IMAGE EXAM Routine 12/10/2023 12:00 AM CDT HEMOGLOBIN A1C, B Routine 04/27/2023 9:3 4 AM [employer] Diabetes Mellitus Type 2 With Diabetic Nephropathy (HCC) BASIC METABOLIC PANEL, S/P Routine 10/23/2022 9:55 AM CDT Hypertension And Chronic Kidney Disease Stage 2 ALBUMIN, RANDOM, U Routine 10/23/2022 9: 48 AM CDT Diabetes Mellitus Type 2 Without Complication (HCC) CT CHEST WITHOUT IV CONTRAST RAD - Routine (most inpatients and all outpatients) 10/27/2020 9:32 AM CDT Cough Chronic COLONOSCOPY 05/26/2020 10:21 AM [employer] from Last 3 Months or Most Recently Relevant to Health Maintenance Results * Eyes Spectralis OCT-Ophthalmology Image Exam (12/10/2023 12:00 AM CDT) Narrative [facility] - 12/11/2023 8:48 AM CDT This order has been created and auto-finalized to support the import of images acquired without order. The clinical documentation to support these images can be found on the encounter that produced images. us Provider Not In System IMG NON RAD IMAGING PROCE ANTONI Final Result IILA NA * (ABNORMAL) Hemoglobin A1c (04/27/2023 9:34 AM [employer]) Hemoglobin A1c, B 6.2(H) 4.2 - 5.6 % 04/27/2023 9:56 AM [employer] AUST Comment: Hemoglobin A1c values of 5.7-6.4 percent indicate an increased risk for developing diabetes mellitus. In diabetic patients, HbA1c goals should be discussed with healthcare provider. Blood (Blood, Venous) 04/27/2023 9:34 AM [employer] 04/27/2023 9:36 AM [employer] us Rodri Reis II, M.D. LAB BLOOD ADD-ON Final Re sult [facility] [address] [place] [address], [facility] AUST [facility] [address] [place] [address] * (ABNORMAL) Basic Metabolic Panel (10/23/2022 9:55 AM CDT) Potassium, P 4.5 3.6 - 5.2 mmol/L 10/23/2022 10:31 AM CDT AUST Sodium, P 141 135 - 145 mmol/L 10/23/2022 10:31 AM CDT AUST Chloride, P 107 98 - 107 mmol/L 10/23/2022 10:31 AM CDT AUST Bicarbonate, P 25 22 - 29 mmol/L 10/23/2022 10:31 AM CDT AUST Anion Gap, P 9 7 - 15 10/23/2022 10:31 AM CDT AUST BUN (Blood Urea Nitrogen), P 12 8 - 24 mg/dL 10/23/2022 10:31 AM CDT AUST Creatinine 0.76 0.74 - 1.35 mg/dL 10/23/2022 10:31 AM CDT AUST Estimated GFR (eGFR) >90 >=60 mL/min/BSA 10/23/2022 10:31 AM CDT AUST Comment: Estimated GFR calculated using the 2020 CKD_EPI creatinine equation. Calcium, Total, P 9.2 8.8 - 10.2 mg/dL 10/23/2022 10:31 AM CDT AUST Glucose, P 208(H) 70 - 140 mg/dL 10/23/2022 10:31 AM CDT AUST Blood (Blood, Venous) 10/23/2022 9:55 AM CDT 10/23/2022 9:59 AM CDT us Rodri Reis II, M.D. LAB BLOOD ADD-ON Final Re sult Performing Organization Address [facility] Co de Phone Number [facility] [address] [place] [address], [facility] [address] [place] [address] * (ABNORMAL) Albumin, Random, Urine (10/23/2022 9:48 AM CDT) Microalbumin 157.9 mg/L 10/23/2022 11:18 AM CDT AUST Creatinine 148 mg/dL 10/23/2022 11:18 AM CDT AUST Albumin/Creatinin e Ratio 107(H) <17 mg/g 10/23/2022 11:18 AM CDT AUST Urine (Urine, Voided) 10/23/2022 9:48 AM CDT 10/23/2022 10:27 AM CDT us Rodri Reis II, M.D. LAB URINE ORDERABLES Eloisa l Result Performing Organization Address [facility] Co de Phone Number [facility] [address] [place] [address], [facility] [address] [place] [address] * CT Chest without IV Contrast (10/27/2020 9:32 AM CDT) Anatomical Region Laterality Modality Chest, Thoracic RST LOS, Tho racic ARZ LOS, Thoracic FLA LOS N/A Computed Tomography 10/27/2020 9:36 AM CDT Impressions 10/27/2020 9:45 AM CDT 1. ??Mild pulmonary emphysema. Narrative 10/27/2020 9:45 AM CDT EXAM: CT CHEST WITHOUT IV CONTRAST 3D/MIPS: 3D Post-Processing performed on a dependent workstation. COMPARISON: December 13, 2013 and July 15, 2015 FINDINGS: Thorax: 1.2 cm right thyroid nodule, not meeting size criteria to warrent routine further workup in the absence of a specific clinical concern. Coronary atherosclerotic vascular disease. No pleural or pericardial effusion. The trachea and major airways are patent. No enlarged mediastinal or axillary lymph nodes. Sequela of prior granulomatous disease. No suspicious pulmonary nodules, masses, or consolidations. Mild pulmonary emphysema. Limited upper abdomen: Cholecystectomy. Left adrenal gland nodule measuring up to 2.2 cm in diameter, unchanged from 2016 Bones: Multiple fixated left posterior ribs. No acute osseous abnormality. Procedure Note Lyle Bay M.D. - 10/27/2020 EXAM: CT CHEST WITHOUT IV CONTRAST 3D/MIPS: 3D Post-Processing performed on a dependent workstation. COMPARISON: December 13, 2013 and July 15, 2015 FINDINGS: Thorax: 1.2 cm right thyroid nodule, not meeting size criteria towarrent routine further workup in the absence of a specific clinical concern.Coronary atherosclerotic vascular disease. No pleural or pericardial effusion.The trachea and major airways are patent. No enlarged mediastinal or axillarylymph nodes. Sequela of prior granulomatous disease. No suspicious pulmonarynodules, masses, or consolidations. Mild pulmonary emphysema. Limited upper abdomen: Cholecystectomy. Left adrenal gland nodulemeasuring up to 2.2 cm in diameter, unchanged from 2016 Bones: Multiple fixated left posterior ribs. No acute osseousabnormality. IMPRESSION: 1. Mild pulmonary emphysema. Rodri Reis II, M.D. [facility] PROCEDURES Final R esult * COLONOSCOPY (05/26/2020 10:21 AM DERRICK BOAT RUNNER) Narrative Procedure Note Keith Martinez M.D. - 05/26/2020 10:21 AM CST [facility] Patient Name: Cornelius Telles Procedure Date: 05/26/2020 10:21 AM Date of : 1940 Age: 80 Gender: Male Procedure: Colonoscopy Providers: Keith Martinez MD, Corinna Wheatley (Ordering Provider) Referring Provider: Corinna Wheatley Pre-op Diagnoses: Melena Post-op Diagnoses: - The examined portion of the ileum was normal. - The entire examined colon is normal on direct and retroflexionviews. - No specimens collected. Recommendation: - Discharge patient to home (ambulatory). - Resume previous diet today. - Return to primary care physician (date not yet determined). - No further screening [facility] Findings: The perianal and digital rectal examinations were normal. The silvina-terminal ileum appeared normal. The entire examined colon appeared normal on direct and retroflexion views. Medicines: Monitored Anesthesia Care Estimated Blood Loss: Estimated blood loss: none. Complications: No immediate complications. Estimated blood loss: None. Procedure Details: The patient was seen, evaluated, and history reviewed. Airway and heart and lung exams were performed and were satisfactory for plannedsedation care. The risks, benefits and alternatives for the procedure and sedation were discussed andinformed consent was obtained. A procedural pause was conducted in the presence of assisting personnelto verify the correct patient identity and procedureto be performed. Throughout the procedure, the patient's blood pressure, pulse, and oxygen saturations were monitored continuously. The Colonoscope was introduced under directvision through the anus and advanced to the ileocolonic anastomosis. The colonoscopy was performed with ease. The patient tolerated the procedure well.The quality of the bowel preparation was evaluatedusing the BBPS ([place] Bowel Preparation Scale) with scores of: Right Colon = 3, Transverse Colon = 3and Left Colon = 3 (entire mucosa seen well with no residual staining, small fragments of stool or opaque liquid). The total BBPS score equals 9. Sedation: Anesthesia was administered by an anesthesia professional. Thefollowing parameters were monitored: oxygen saturation, heart rate, blood pressure, respiratory rate, EKG, adequacy of pulmonary ventilation,and response to care. Keith Martinez MD 05/26/2020 10:55:02 AM This report has been signed electronically. Number of Addenda: 0 Note Initiated On: 05/26/2020 10:21 AM us Corinna Wheatley [facility] GI PROCEDURE ORDER LINDA Final Result from Last 3 Months or Most Recently Relevant to Health Maintenance Insurance ARE MEDICARE Advance Directives For more information, please contact: [phone] Documents on File Type Date Recorded Patient Application Development Team Lead Expl anation Advance Directives 11/26/2017 4:48 PM Heal th Care Directive Advance Directives 08/18/2013 12:00 AM Leg acy document. See document viewer. * Full Code (Latest Code Status on File) Date Activated Date Inactivated Comments 03/05/2023 7:11 AM 03/05/2023 11:07 AM Question Answer Comments Full Code: Discussed * Full Code Date Activated Date Inactivated Comments 02/26/2023 9:46 AM 02/26/2023 1:47 PM Question Answer Comments Full Code: Discussed Healthcare Agents on File Name Relationship Healthcare Agent Relationship Communication Anton Telles Son Health Care Agent Niya Currie Daughter First Alternate Health Care Agent Care Teams Emt Basic Relationship Specialty Start Date End Date Rodri Reis II, M.D. [address] [place] [phone] PCP - General Family Medicine 03/03/19
--- OUTSIDE RECORDS SUMMARY | 2024-04-04 11:24 | XMS_ITS | Encounter Summary ---
Author Organization [facility] Address [address] [place] [address] Care Team Providers Care Commissary Assistant Name Role Phone Chato HODGSON M.D., Rodri Laws Primary Care Provider [phone] [phone] Encounter Details Date Type Department Care Team (Latest Contact Info) Description 03/05/2024 Clinical Communication Department of Ophthalmology in [place], [place] [address] [place] [address] Peyton Timmons M.D., Ph.D. [address] [place] [phone] Social History Tobacco Use Types Packs/Day Years Used Date Smoking Tobacco: Former Cigarettes 963 - 1987 Smokeless Tobacco: Never Alcohol Use Standard Drinks/Week Comments No 0 [...] often do you attend chur ch or yazidism services? Never 04/24/2022 Do you belong to any clubs o r organizations such as anabaptist groups, unions, fraternal or athletic groups, or [...] Answer Date Recorded PHQ-2 Score 0 10/24/2022 [facility] - Occupational Stress [...] money to buy more. Never true 04/24/20 22 Within the past 12 months, t he [...] place to sleep or slept in a longterm (including now)? No 04/24/2022 Depression Answer Date [...] PM CDT Legal Sex Male 4:59 PM SOCIAL MEDIA MANAGER Gender Identity Male 12/03/2017 2:33 PM CDT Sexual Orientation Straight 12/03/2017 2: 33 PM CDT documented as of this encounter Miscellaneous Notes * Telephone Encounter - Latrice Marsh - 03/05/2024 11:04 AM CDT Spoke with patient today about eye injection appointments in [place]. He has moved out of the area and is continuing his care in [place], [place]. documented in this encounter Plan of Treatment Not on file documented as of this encounter Visit Diagnoses Not on filedocumented in this encounter Additional Health Concerns Assessment Noted Time PHQ-9 Depression Total Score: 0 04/24/20 22 8:48 AM SOCIAL MEDIA MANAGER documented as of this encounter Care Teams Commissary Assistant Relationship Specialty Start Date End Date Rodri Reis II, M.D. [address] [place] [phone] PCP - General Family Medicine 03/03/19 documented as of this encounter
--- OUTSIDE RECORDS SUMMARY | 2024-04-04 11:24 | XMS_ITS | Encounter Summary ---
Author Organization [facility] Address [address] [place] [address] Care Team Providers Care Barrel Bridge Assembler Name Role Phone Chato HODGSON M.D., Rodri Laws Primary Care Provider [phone] [phone] Encounter Details Date Type Department Care Team (Late st Contact Info) Description 08/13/2007 Historical Ophthalmology RST OPH Carlos Frank M.D. 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 - 08/13/2007 2:36 PM CST Eye General CHIEF COMPLAINT 2 year return HISTORY OF PRESENT ILLNESS This is a 67 year old male here for a 2 year follow up. 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 Patient states the vision has been stable. Patient denies flashes of light and floaters. Patient denies ocular pain. He has no complaints at this time. 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 Dr. 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 #2 mild vit heme OD secondary to #1-resolved #3 sp laser for retinal tears and lattice OS-no new tears-some latttice that may be treated OS #4 mild epiretinal membrane both eyes #5 mild-moderate age related macular degeneration nonexudative-does not smoke #6 optic disc druse CDM Reports - EYEGEN Id: [id number] Status: Fnl documented in this encounter Plan of Treatment Not on file documented as of this encounter Visit Diagnoses Not on filedocumented in this encounter Additional Health Concerns Infection Onset Date Last Indicated Resolved Time COVID19 Pending 05/23/2020 05/23/2020 05/24/2020 3 :27 AM BOARD HAMMER OPERATOR documented as of this encounter Care Teams Barrel Bridge Assembler Relationship Specialty Start Date End Date Rodri Reis II, M.D. [address] [place] [phone] PCP - General Family Medicine 03/03/19 documented as of this encounter
--- OUTSIDE RECORDS SUMMARY | 2024-04-04 11:24 | XMS_ITS ---
Author Organization [facility] Address [address] [place] [address] Care Team Providers Care Cellular Tower Climber Name Role Phone Unavailable Unavailable Unavailable Surgery Details Not on file Complications Check Surgery Details section. Procedure Estimated Blood Loss Check Surgery Details section. Procedure Findings Check Surgery Details section. Procedure Specimens Taken Check Surgery Details section.
--- OUTSIDE RECORDS SUMMARY | 2024-04-04 11:24 | XMS_ITS | Referral Summary ---
Author Organization [facility] Address [address] [place] [address] Care Team Providers Care Cra Officer Name Role Phone Chato HODGSON M.D., Rodri Laws Primary Care Provider [phone] Source Comments Patient records contain information from all sites at [facility]. For routine questions regarding patient records, call [phone] during business hours, M-F 8:00 AM - 5:00 PM Central Time. Record requests for emergency care only can be directed to [phone] at any time.[facility] Encounters Date Type Department Care Team Description 03/05/2024 Clinical Communication Department of Ophthalmology in [place], [place] [address] [place] [address] Peyton Timmons M.D., Ph.D. from Last 3 Months Allergies Active Allergy Reactions Criticality Noted Date [...] 05/14/2023 Assessment & Plan (05/14/2023 4:17 PM SECURITY PATROL OFFICER): Monitor. Morbid Obesity Body Mass Ind ex >= 35 with Comorbid Condition 03/30/2021 Assessment & Plan (03/31/2021 7:35 AM CDT): ?? Since meeting with rn diabetes educator patient has made a significant effort [...] modifying his diet after meeting with the rn diabetes educator. o Patient requesting trial off metformin [...] A1c in 3 months ?? Refer to rn diabetes educator ?? ARB - Losartan 100mg daily ?? 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 Controlled ?? Continue statin therapy ?? [...] daily Assessment & Plan (07/07/2019 5:10 PM SECURITY PATROL OFFICER): ?? Currently asymptomatic ?? Continue azathioprine [address] [...] diet. Assessment & Plan (07/07/2019 5:13 PM SECURITY PATROL OFFICER): ?? Uncontrolled due to non-adherence ?? Discussed [...] Nogueira Assessment & Plan (05/10/2021 12:29 PM SECURITY PATROL OFFICER): Likely contributing to subjective blur. Follows with Dr. Nogueira--will send message. Cataract Senile Cortical Bilateral 05/17/2017 05/14/2023 Immunizations Name Administration Dates Next Due HZV [...] trivalent vaccine (6 months and older)(PF) 02/19/2020,05/12/2013,03/21/2012 Social History Tobacco Use Types Packs/Day Years Used Date Smoking Tobacco: Former Cigarettes 2 25 1 963 - 1988 Smokeless Tobacco: Never Tobacco Cessation:Counseling Given: Not [...] often do you attend chur ch or rastafarian services? Never 04/24/2022 Do you belong to any clubs o r organizations such as voodoo groups, unions, fraternal or athletic groups, or [...] Answer Date Recorded PHQ-2 Score 0 10/24/2022 [facility] - Occupational [...] place to sleep or slept in a fci (including now)? No 04/24/2022 Depression Answer Date [...] PM CDT Legal Sex Male 4:59 PM SECURITY PATROL OFFICER Gender Identity Male 12/03/2017 2:33 PM CDT [...] Body Mass Index 36.99 06/07/2023 10:31 AM SECURITY PATROL OFFICER Plan of Treatment Not on file Medical Devices Implanted Type Area Aircraft Restorer Device Identifier Shelf Expiration Date Model / Serial / Lot Plate-Matrixrib [employer]. 8 Holes - Patten [id number] Implanted:Qty: 4 on 12/17/2013 Hardware e.g. pins/screws/ rods Left: Rib Depuy Synthes Description:Device Manufactu rer - Synthes. Device Status Text - [id number]. Screw-Matrixrib S-Tap Lock 2.9 X 14mm - Patten [id number] Implanted:Qty: 23 on 12/17/2013 Hardware e.g. pins/screws/ rods Left: Rib Depuy Synthes Description:Device Manufactu rer - Synthes. Device Status Text - [id number]. Lens Clr Mnfcl Cna0t0 +19.0d - [id number] - [id number] Implanted:Qty: 1 on 02/26/2023 by Amol Nogueira M.D., Ph.D. at [facility] Ocular Lens Right: Eye [employer] 09/10/2025 CNA0T0.19 0 / [id number] / Lens Clr Mnfcl Cna0t0 +19.5d - [id number] - [id number] Implanted:Qty: 1 on 03/05/2023 by Amol Nogueira M.D., Ph.D. at [facility] Ocular Lens Left: Eye [employer] 06/20/2025 CNA0T0.19 5 / [id number] / Procedures Procedure Name Priority Date/Time Associated Diagnosis Comments OPHTHALMOLOGY IMAGE EXAM Routine 12/10/2023 12:00 AM CDT HEMOGLOBIN A1C, B Routine 04/27/2023 9:3 4 AM SECURITY PATROL OFFICER Diabetes Mellitus Type 2 With Diabetic Nephropathy (HCC) BASIC METABOLIC PANEL, S/P Routine 10/23/2022 9:55 AM CDT Hypertension And Chronic Kidney Disease Stage 2 ALBUMIN, RANDOM, U Routine 10/23/2022 9: 48 AM CDT Diabetes Mellitus Type 2 Without Complication (HCC) CT CHEST WITHOUT IV CONTRAST RAD - Routine (most inpatients and all outpatients) 10/27/2020 9:32 AM CDT Cough Chronic COLONOSCOPY 05/26/2020 10:21 AM SECURITY PATROL OFFICER from Last 3 Months or Most Recently [...] In System IMG NON RAD IMAGING PROCE DURES Final Result Performing Organization Address [facility] Co de Phone Number [facility] NA * (ABNORMAL) Hemoglobin A1c (04/27/2023 9:34 AM SECURITY PATROL OFFICER) Hemoglobin A1c, B 6.2(H) 4.2 - 5.6 % 04/27/2023 9:56 AM SECURITY PATROL OFFICER AUST Comment: Hemoglobin A1c values of 5.7-6.4 percent indicate an increased risk for developing diabetes mellitus. In diabetic patients, HbA1c goals should be discussed with healthcare provider. Blood (Blood, Venous) 04/27/2023 9:34 AM SECURITY PATROL OFFICER 04/27/2023 9:36 AM SECURITY PATROL OFFICER us Rodri Reis II, M.D. LAB BLOOD ADD-ON Final Re sult [facility] [address] [place] [address], [facility] AUST [facility] [address] [place] [address] * (ABNORMAL) Basic Metabolic Panel (10/23/2022 9:55 [...] M.D. LAB BLOOD ADD-ON Final Re sult [facility] [address] [place] [address], [place] AUST [facility] [address] [place] [address] * (ABNORMAL) Albumin, Random, Urine (10/23/2022 9:48 AM CDT) Microalbumin 157.9 mg/L 10/23/2022 11:18 AM CDT AUST Creatinine 148 mg/dL 10/23/2022 11:18 AM CDT AUST Albumin/Creatinin e Ratio 107(H) <17 mg/g 10/23/2022 11:18 AM CDT AUST Urine (Urine, Voided) 10/23/2022 9:48 AM CDT 10/23/2022 10:27 AM CDT us Rodri Reis II, M.D. LAB URINE ORDERABLES Eloisa l Result [facility] [address] [place] [address], [facility] AUST [facility] [address] [place] [address] * CT Chest without IV Contrast (10/27/2020 [...] acute osseousabnormality. IMPRESSION: 1. Mild pulmonary emphysema. us Rodri Reis II, M.D. IMG CT PROCEDURES Final R esult * COLONOSCOPY (05/26/2020 10:21 AM SECURITY PATROL OFFICER) Narrative Procedure Note Keith Martinez M.D. - 05/26/2020 10:21 AM CST [facility] Patient Name: Cornelius Telles Procedure Date: [...] No further screening [facility] Findings: The perianal and digital rectal examinations [...] the bowel preparation was evaluatedusing the BBPS ([place] Bowel Preparation Scale) with scores of: Right [...] 0 Note Initiated On: 05/26/2020 10:21 AM Corinna MURRAY, P.A.-C. GI PROCEDURE ORDER LINDA Final Result from Last 3 Months or Most Recently Relevant to Health Maintenance Insurance [facility] MEDICARE Advance Directives For more information, please contact: [phone] Documents on File Type Date Recorded Patient Statistics Professor Expl anation Advance Directives 11/26/2017 4:48 PM [...] First Alternate Health Care Agent Care Teams Cra Officer Relationship Specialty Start Date End Date Rodri Reis II, M.D. [address] [place] [phone] PCP - General Family Medicine 03/03/19
--- OUTSIDE RECORDS SUMMARY | 2024-04-04 11:25 | XMS_ITS | Encounter Summary ---
Author Organization [facility] Address [address] [place] [address] Care Team Providers Care Smart Energy Specialist Name Role Phone Chato HODGSON M.D., Rodri Laws Primary Care Provider [phone] Encounter Details Date Type Department Care Team (Late st Contact Info) Description 10/23/2002 Historical Ophthalmology RST OPH Erik Lantigua M.D. Social History Tobacco Use Types Packs/Day Years Used Date Smoking Tobacco: Never Assessed Sex and Gender Information Value Date Recorded Sex Assigned at Male 12/03/2017 2:33 PM CDT Legal Sex Male 4:59 PM CUSTOMER COMPLAINT SERVICE SUPERVISOR Gender Identity Male 12/03/2017 2:33 PM CDT Sexual Orientation Straight 12/03/2017 2: 33 PM CDT documented as of this encounter Progress Notes * Erik Lantigua M.D. - 10/23/2002 12:00 AM CDT Eye Postoperative MULTI-VISIT DOCUMENT This document contains multiple patient visits and is available for review in Document Viewer. CDM Reports - EYEPO Id: [id number] Status: Fnl documented in this encounter Plan of Treatment Not on file documented as of this encounter Visit Diagnoses Not on filedocumented in this encounter Additional Health Concerns Infection Onset Date Last Indicated Resolved Time COVID19 Pending 05/23/2020 05/23/2020 05/24/2020 3 :27 AM CUSTOMER COMPLAINT SERVICE SUPERVISOR documented as of this encounter Care Teams Smart Energy Specialist Relationship Specialty Start Date End Date Rodri Reis II, M.D. [address] [place] [phone] PCP - General Family Medicine 03/03/19 documented as of this encounter
--- OUTSIDE RECORDS SUMMARY | 2024-04-04 11:25 | XMS_ITS | Encounter Summary ---
Author Organization [facility] Address [address] [place] [address] Care Team Providers Care Camp Attendant Name Role Phone Chato HODGSON M.D., Rodri Laws Primary Care Provider [phone] Encounter Details Date Type Department Care Team (Late st Contact Info) Description 10/22/2002 Historical Ophthalmology [facility] Erik Lantigua M.D. Social History Tobacco Use Types Packs/Day Years Used Date Smoking Tobacco: Never Assessed Sex and Gender Information Value Date Recorded Sex Assigned at Male 12/03/2017 2:33 PM CDT Legal Sex Male 4:59 PM LAUNDRY BAG PUNCH OPERATOR Gender Identity Male 12/03/2017 2:33 PM CDT Sexual Orientation Straight 12/03/2017 2: 33 PM CDT documented as of this encounter Progress Notes * Erik Lantigua M.D. - 10/22/2002 12:00 AM CDT Eye General CHIEF COMPLAINT cobwebs floating in left eye HISTORY OF PRESENT ILLNESS cobwebs floating in left eye for past 10 days. denies flashes. overall, vision is unchanged other than the floating webs. 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 see detailed drawing ou discussed need for Rx with laser, uncertaintiews, risks alternatives; need fron onging monitoing plan to proceed and see tomorrow and two weeks DIAGNOSIS #1 lattice degeneration with symptomatic tears OS CDM Reports - EYEGEN Id: [id number] Status: Fnl documented in this encounter Plan of Treatment Not on file documented as of this encounter Visit Diagnoses Not on filedocumented in this encounter Additional Health Concerns Infection Onset Date Last Indicated Resolved Time COVID19 Pending 05/23/2020 05/23/2020 05/24/2020 3 :27 AM LAUNDRY BAG PUNCH OPERATOR documented as of this encounter Care Teams Camp Attendant Relationship Specialty Start Date End Date Rodri Reis II, M.D. [address] [place] [id number] PCP - General Family Medicine 03/03/19 documented as of this encounter
--- OUTSIDE RECORDS SUMMARY | 2024-04-04 11:25 | XMS_ITS | Encounter Summary ---
Author Organization [facility] Address [address] [place] [address] Care Team Providers Care Knobber Name Role Phone Chato HODGSON M.D., Rodri Laws Primary Care Provider [phone] Encounter Details Date Type Department Care Team (Late st Contact Info) Description 05/30/2004 Historical Ophthalmology [facility]ST O[facility] Carlos Frank M.D. 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 HISTORY OF PRESENT ILLNESS Total chris: [id number] Preop vision: 20/20-1 Vision better, right eye. No vision concerns with left eye at this time. 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 Dr. 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 [address] [place] [phone] PCP - General Family Medicine 03/03/19 documented as of this encounter
--- OUTSIDE RECORDS SUMMARY | 2024-04-04 11:25 | XMS_ITS | Encounter Summary ---
Author Organization [facility] Address [address] [place] [address] Care Team Providers Care Rn Support Services Name Role Phone Chato HODGSON M.D., Rodri Laws Primary Care Provider [phone] Encounter Details Date Type Department Care Team (Late st Contact Info) Description 02/17/2004 Historical Ophthalmology RST OPH Carlos Frank M.D. 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 - 02/17/2004 12:00 AM CDT Eye Postoperative MULTI-VISIT DOCUMENT This document contains multiple patient visits and is available for review in Document Viewer. CDM Reports - EYEPO Id: [id number] Status: Fnl documented in this encounter Plan of Treatment Not on file documented as of this encounter Visit Diagnoses Not on filedocumented in this encounter Additional Health Concerns Infection Onset Date Last Indicated Resolved Time COVID19 Pending 05/23/2020 05/23/2020 05/24/2020 3 :27 AM LABORATORY MACHINIST documented as of this encounter Care Teams Rn Support Services Relationship Specialty Start Date End Date Rodri Reis II, M.D. [address] [place] [phone] PCP - General Family Medicine 03/03/19 documented as of this encounter
--- OUTSIDE RECORDS SUMMARY | 2024-04-04 11:25 | XMS_ITS | Encounter Summary ---
Author Organization [facility] Address [address] [place] [address] Care Team Providers Care Electrical Continuity Inspector Name Role Phone Chato HODGSON M.D., Rodri Laws Primary Care Provider [phone] Encounter Details Date Type Department Care Team (Late st Contact Info) Description 06/22/2003 Historical Ophthalmology RST O[facility] Erik Lantigua M.D. 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 - 06/22/2003 12:00 AM CST Eye General CHIEF COMPLAINT Recheck HISTORY OF PRESENT ILLNESS S/P laser for lattice degeneration OS. Patient reports Va stable. Denies pain, flashes and floaters. IMPRESSION / REPORT / PLAN #1 satisfactory status post laser pc for symptomatic tears retina OS no new breaks; rec check again in 1 year ; he will call DIAGNOSIS #1 satisfactory status post laser pc for symptomatic tears retina OS CDM Reports - EYEGEN Id: [id number] Status: Fnl documented in this encounter Plan of Treatment Not on file documented as of this encounter Visit Diagnoses Not on filedocumented in this encounter Additional Health Concerns Infection Onset Date Last Indicated Resolved Time COVID19 Pending 05/23/2020 05/23/2020 05/24/2020 3 :27 AM DRYWALL CONTRACTOR documented as of this encounter Care Teams Electrical Continuity Inspector Relationship Specialty Start Date End Date Rodri Reis II, M.D. [address] [place] [phone] PCP - General Family Medicine 03/03/19 documented as of this encounter
--- OUTSIDE RECORDS SUMMARY | 2024-04-04 11:25 | XMS_ITS | Encounter Summary ---
Author Organization [facility] Address [address] [place] [address] Care Team Providers Care Side Framer Name Role Phone Chato HODGSON M.D., Rodri Laws Primary Care Provider [phone] Encounter Details Date Type Department Care Team (Late st Contact Info) Description 08/08/2005 Historical Ophthalmology RST OPH Carlos Frank M.D. 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 - 08/08/2005 12:00 AM CST Eye General CHIEF COMPLAINT 1 year return for retinal tear HISTORY OF PRESENT ILLNESS Patient states that vision hasn't changed since last visit on May 30 2004. No new changes inRx glasses. Dneies flashing lights and floaters. Denies pressure and pain. 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 Dr. 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 [address] [place] [phone] PCP - General Family Medicine 03/03/19 documented as of this encounter
--- OUTSIDE RECORDS SUMMARY | 2024-04-04 11:25 | XMS_ITS | Encounter Summary ---
Author Organization [facility] Address [address] [place] [address] Care Team Providers Care Assisted Living Coordinator Name Role Phone Chato HODGSON M.D., Rodri Laws Primary Care Provider [phone] Encounter Details Date Type Department Care Team (Late st Contact Info) Description 02/12/2004 Historical Ophthalmology RST OPH Carlos Frank M.D. 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 - 02/12/2004 12:00 AM CDT Eye General CHIEF COMPLAINT flashes HISTORY OF PRESENT ILLNESS Patient has history of retinal tears with laser treatments, left eye 1 year ago. For past 3 weeks, notes cobweb like floaters after a few episodes of light flashes, right eye. 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 [address] [place] [phone] PCP - General Family Medicine 03/03/19 documented as of this encounter
== END 2024-04-03 08:01 | disposition home or self-care (01) ==
LOC: NFLDREF 04-04 11:22
PROVIDERS: PCP Family Medicine; Referring Provider Family Medicine; Visit Provider Family Medicine
DX: Z00.00 Encounter for general adult medical examination without abnormal findings (principal); E11.40 Type 2 diabetes mellitus with diabetic neuropathy, unspecified; I10 Essential (primary) hypertension; E78.5 Hyperlipidemia, unspecified; Z12.5 Encounter for screening for malignant neoplasm of prostate
CPT/HCPCS: 80053; 80061; 82043; 82570; G0103

== ENCOUNTER 2024-08-08 08:55 | Outpatient (CLI) | payer MEDICARE, SELFPAY | END 2024-08-08 08:56 | disposition home or self-care (01) | LOC: NFLDREF 08-11 01:52 | PROVIDERS: PCP Family Medicine; Referring Provider Family Medicine; Visit Provider Family Medicine | DX: E11.40 Type 2 diabetes mellitus with diabetic neuropathy, unspecified (principal); K51.90 Ulcerative colitis, unspecified, without complications | CPT/HCPCS: 84450; 84460 ==

== ENCOUNTER 2025-03-30 08:39 | Outpatient (CLI) | payer MEDICARE, SELFPAY | END 2025-03-30 08:40 | disposition home or self-care (01) | LOC: NFLDREF 04-01 09:35 | PROVIDERS: PCP Family Medicine; Referring Provider Family Medicine; Visit Provider Family Medicine | DX: Z00.00 Encounter for general adult medical examination without abnormal findings (principal); E78.5 Hyperlipidemia, unspecified; I10 Essential (primary) hypertension; Z12.5 Encounter for screening for malignant neoplasm of prostate | CPT/HCPCS: 80053; 80061; 82043; 82570; G0103 ==

== ENCOUNTER 2025-04-30 10:02 | Outpatient (CLI) | payer MEDICARE, SELFPAY | END 2025-04-30 10:03 | disposition home or self-care (01) | LOC: NFLDREF 05-06 02:08 | PROVIDERS: PCP Family Medicine; Referring Provider Family Medicine; Visit Provider Family Medicine | DX: K51.90 Ulcerative colitis, unspecified, without complications (principal) | CPT/HCPCS: 80076 ==

== ENCOUNTER 2025-06-03 09:12 | Outpatient (CLI) | payer MEDICARE, SELFPAY | END 2025-06-03 09:13 | disposition home or self-care (01) | LOC: NFLDREF 06-08 11:12 | PROVIDERS: PCP Family Medicine; Referring Provider Family Medicine; Visit Provider Family Medicine | DX: K51.90 Ulcerative colitis, unspecified, without complications (principal) | CPT/HCPCS: 80076 ==